=== PATIENT | male | born 1985 | race Caucasian/White ===

== ENCOUNTER 2017-11-28 01:35 | Inpatient (IN) | payer BC, OTHER ==
[~2017-11-28] VITALS: Ht 162.6 cm; Wt 63.0 kg
[2017-11-28] VITALS (7 sets, daily range): BP systolic 114–123; BP diastolic 69–74
[2017-11-28] MEDS ORDERED: DOLU50TA PO (03:01)
[2017-11-28] MEDS ORDERED: EMTR1TAB12 PO (03:01)
[2017-11-28] MEDS ORDERED: TRAZ-132 PO (03:04)
[2017-11-28] MEDS ORDERED: GUAIFENESIN 200MG/10ML SUGAR FREE UDC PO PRN (08:30)
[2017-11-28] MEDS ORDERED: IPRATROPIUM/ALBUTEROL 0.5-3(2.5)MG/3ML NEB INH PRN (08:30)
[2017-11-28] MEDS ORDERED: MAGNESIUM/ALUMINUM HYDROXIDE/SIMETHICONE 30ML UDC PO PRN (08:30)
[2017-11-28] MEDS ORDERED: ONDANSETRON HCL 4MG/2ML VIAL IV PRN (08:30)
[2017-11-28] MEDS ORDERED: DOCUSATE SODIUM 100MG CAPSULE PO PRN (08:30)
[2017-11-28] MEDS ORDERED: DIPHENHYDRAMINE 50MG/ML VIAL IV PRN (08:30)
[2017-11-28] MEDS ORDERED: CLONIDINE 0.1MG TABLET PO PRN (08:30)
[2017-11-28] MEDS ORDERED: NA PHOS,M-B/NA PHOS,DI-BA ENEMA 118ML PR PRN (09:00)
[2017-11-28] MEDS: ALPRAZOLAM 0.5 MG TABLET PO PRN (12:27)
[2017-11-28 12:49] LABS: BASOPHILS % 0.3 % (0.0-2.0); EOSINOPHILS % 0.2 % (0.0-5.0); HEMATOCRIT. 40.7 % (42.0-52.0); HEMOGLOBIN. 13.9 g/dL (14.0-18.0); LYMPHOCYTES % 23.7 % (20.0-50.0); MEAN CORPUSCULAR HEMOGLOBIN 31.9 pg (28.0-32.0); MEAN CORPUSCULAR VOLUME 93.6 fL (80.0-94.0); MEAN PLATELET VOLUME 8.1 fl (7.4-10.4); MONOCYTES % 12.2 % (2.0-8.0); NEUTROPHILS % 63.6 % (40.0-76.0); PLATELET 211 x1000/uL (130-400); RED BLOOD CELL COUNT 4.35 mill/uL (4.7-6.1); RED CELL DISTRIBUTION WIDTH 14.2 % (11.6-14.6)
[2017-11-28 13:33] LABS: CARBON DIOXIDE 27 mEq/L (21-32); CHLORIDE 102 mEq/L (98-107)
[2017-11-28] MEDS: SODIUM CHLORIDE 0.9% INJ 3ML FLUSH IVF SCH ×2 (14:26→20:43)
[2017-11-28 16:13] LABS: CLARITY URINE CLEAR (CLEAR); COLOR URINE YELLOW (YELLOW); KETONES URINE NEGATIVE (NEGATIVE); LEUKOCYTE ESTERASE URINE NEGATIVE (NEGATIVE); NITRITE URINE NEGATIVE (NEGATIVE); OCCULT BLOOD URINE NEGATIVE (NEGATIVE); PH URINE 6.5 (4.5-8.0); PROTEIN URINE NEGATIVE (NEGATIVE); SPECIFIC GRAVITY URINE 1.027 (1.005-1.030)
[2017-11-29] VITALS: BP 114/75
[2017-11-29] MEDS: HYDROCODONE/ACETAMINOPHEN 5/325MG TABLET PO PRN (01:33)
[2017-11-29 04:00] VITALS: BP 111/64
[2017-11-29] MEDS: SODIUM CHLORIDE 0.9% INJ 3ML FLUSH IVF SCH ×3 (06:00→22:00)
[2017-11-29 07:03] LABS: BASOPHILS % 0.4 % (0.0-2.0); EOSINOPHILS % 0.2 % (0.0-5.0); HEMATOCRIT. 40.5 % (42.0-52.0); HEMOGLOBIN. 14.2 g/dL (14.0-18.0); LYMPHOCYTES % 20.2 % (20.0-50.0); MEAN CORPUSCULAR HEMOGLOBIN 33.1 pg (28.0-32.0); MEAN CORPUSCULAR VOLUME 94.4 fL (80.0-94.0); MEAN PLATELET VOLUME 8.5 fl (7.4-10.4); MONOCYTES % 10.1 % (2.0-8.0); NEUTROPHILS % 69.1 % (40.0-76.0); PLATELET 191 x1000/uL (130-400); RED BLOOD CELL COUNT 4.29 mill/uL (4.7-6.1); RED CELL DISTRIBUTION WIDTH 14.5 % (11.6-14.6)
[2017-11-29 07:23] LABS: CHLORIDE 102 mEq/L (98-107)
[2017-11-29] MEDS ORDERED: [UNRECOGNIZED DRUG - OTHER] PO SCH (07:30)
[2017-11-29] MEDS ORDERED: MEDICATION NOT ON FORMULARY EA (Dolutegravir Sodium (Tivicay) 50 MG) PO SCH (07:30)
[2017-11-29 07:49] LABS: CARBON DIOXIDE 23 mEq/L (21-32); HDL CHOLESTEROL 41 mg/dL (40-59); LDL CHOLESTEROL 122 mg/dL (5-100)
[2017-11-29 08:00] VITALS: BP 110/66
[2017-11-29 12:00] VITALS: BP 117/70
[2017-11-29 16:00] VITALS: BP 113/70
[2017-11-29] MEDS: ALPRAZOLAM 0.5 MG TABLET PO PRN (17:33)
[2017-11-29 20:00] VITALS: BP 127/81
[2017-11-29] MEDS: TRAZODONE HCL 50MG TABLET PO SCH (21:21)
[2017-11-30] VITALS: BP 98/74
[2017-11-30] MEDS: SODIUM CHLORIDE 0.9% INJ 3ML FLUSH IVF SCH ×3 (06:00→22:00)
[2017-11-30 08:00] VITALS: BP 113/67
[2017-11-30 12:00] VITALS: BP 120/72
[2017-11-30] MEDS: ENOXAPARIN 40MG/0.4ML SYR SUBCUT SCH (14:58)
[2017-11-30] MEDS: HYDROCODONE/ACETAMINOPHEN 5/325MG TABLET PO PRN ×2 (15:06→21:44)
[2017-11-30 16:00] VITALS: BP 111/81
[2017-11-30] MEDS ORDERED: DOLU50TA PO ×2 (16:39→16:49)
[2017-11-30] MEDS ORDERED: EMTR1TAB12 PO ×2 (16:39→16:49)
[2017-11-30 19:32] VITALS: BP 107/63
[2017-11-30] MEDS: ALPRAZOLAM 0.5 MG TABLET PO PRN (21:44)
[2017-11-30] MEDS: GABAPENTIN 300MG CAPSULE PO SCH (21:44)
[2017-11-30] MEDS: TRAZODONE HCL 50MG TABLET PO SCH (21:45)
[2017-11-30 23:44] VITALS: BP 92/55
[2017-12-01 04:53] VITALS: BP 94/55
[2017-12-01] MEDS: SODIUM CHLORIDE 0.9% INJ 3ML FLUSH IVF SCH ×3 (06:00→22:00)
[2017-12-01 08:00] VITALS: BP 101/66
[2017-12-01] MEDS: ENOXAPARIN 40MG/0.4ML SYR SUBCUT SCH (08:59)
[2017-12-01 12:00] VITALS: BP 124/73
[2017-12-01 16:00] VITALS: BP 105/66
[2017-12-01 20:19] VITALS: BP 109/58
[2017-12-01] MEDS: GABAPENTIN 300MG CAPSULE PO SCH (21:36)
[2017-12-01] MEDS: TRAZODONE HCL 50MG TABLET PO SCH (21:36)
[2017-12-02 00:10] VITALS: BP 103/67
[2017-12-02 04:00] VITALS: BP 110/62
[2017-12-02] MEDS: SODIUM CHLORIDE 0.9% INJ 3ML FLUSH IVF SCH ×3 (06:00→22:00)
[2017-12-02 08:00] VITALS: BP 112/69
[2017-12-02] MEDS: ENOXAPARIN 40MG/0.4ML SYR SUBCUT SCH (08:53)
[2017-12-02 12:00] VITALS: BP 111/60
[2017-12-02 16:00] VITALS: BP 108/64
[2017-12-02] MEDS: TENOFOVIR 300MG TABLET PO SCH ×2 (16:00→16:25)
[2017-12-02] MEDS: LAMIVUDINE 150MG TABLET PO SCH ×2 (16:00→16:25)
[2017-12-02] MEDS: RALTEGRAVIR 400MG TABLET PO SCH (16:25)
[2017-12-02 20:00] VITALS: BP 112/69
[2017-12-02] MEDS: TRAZODONE HCL 50MG TABLET PO SCH (21:05)
[2017-12-02] MEDS: GABAPENTIN 300MG CAPSULE PO SCH (21:05)
[2017-12-02] MEDS: HYDROCODONE/ACETAMINOPHEN 5/325MG TABLET PO PRN (22:06)
[2017-12-03] VITALS: BP 103/63
[2017-12-03 04:00] VITALS: BP 115/62
[2017-12-03 08:00] VITALS: BP 100/56
[2017-12-03] MEDS: ENOXAPARIN 40MG/0.4ML SYR SUBCUT SCH (09:04)
[2017-12-03] MEDS: RALTEGRAVIR 400MG TABLET PO SCH ×2 (09:04→17:37)
[2017-12-03] MEDS: TENOFOVIR 300MG TABLET PO SCH (09:04)
[2017-12-03] MEDS: LAMIVUDINE 150MG TABLET PO SCH (09:04)
[2017-12-03] MEDS ORDERED: GABA-531 PO (11:57)
[2017-12-03] MEDS ORDERED: VIRE PO (11:57)
[2017-12-03] MEDS ORDERED: RALT400T PO (11:57)
[2017-12-03] MEDS ORDERED: ALPR0.5T PO (11:57)
[2017-12-03] MEDS ORDERED: EPIVIR PO (11:57)
[2017-12-03 12:00] VITALS: BP 126/66
[2017-12-03] MEDS: SODIUM CHLORIDE 0.9% INJ 3ML FLUSH IVF SCH (14:00)
[2017-12-03 16:00] VITALS: BP 117/69
[2017-12-03 20:00] VITALS: BP 103/64
[2017-12-03] MEDS: GABAPENTIN 300MG CAPSULE PO SCH (21:12)
[2017-12-03] MEDS: TRAZODONE HCL 50MG TABLET PO SCH (21:13)
[2017-12-04] VITALS: BP 130/76
[2017-12-04 04:00] VITALS: BP 113/69
[2017-12-04 06:42] LABS: HEMATOCRIT 39.3 % (42.0-52.0); HEMOGLOBIN 13.7 g/dL (14.0-18.0); MEAN CORPUSCULAR HEMOGLOBIN 33.2 pg (28.0-32.0); MEAN CORPUSCULAR VOLUME 95.7 fL (80.0-94.0); PLATELET 149 x1000/uL (130-400); RED BLOOD CELL COUNT 4.11 mill/uL (4.7-6.1); RED CELL DISTRIBUTION WIDTH 15.1 % (11.6-14.6)
[2017-12-04 08:00] VITALS: BP 117/64
[2017-12-04] MEDS: RALTEGRAVIR 400MG TABLET PO SCH ×2 (09:10→17:17)
[2017-12-04] MEDS: LAMIVUDINE 150MG TABLET PO SCH (09:10)
[2017-12-04] MEDS: ENOXAPARIN 40MG/0.4ML SYR SUBCUT SCH (09:10)
[2017-12-04] MEDS: TENOFOVIR 300MG TABLET PO SCH (09:10)
[2017-12-04 09:12] LABS: ABSOLUTE LYMPHOCYTES 1.2 x10E3/uL (0.7-3.1); ABSOLUTE MONOCYTES 0.5 x10E3/uL (0.1-0.9); ABSOLUTE NEUTROPHILS 3.6 x10E3/uL (1.4-7.0); BASOPHILS 0 % (Not Estab.); HEMATOCRIT 39.1 % (37.5-51.0); HEMOGLOBIN 13.3 g/dL (13.0-17.7); IMMATURE GRANULOCYTES 1 % (Not Estab.); LYMPHOCYTES 23 % (Not Estab.); MEAN CORPUSCULAR HEMOGLOBIN 32.2 pg (26.6-33.0); MEAN CORPUSCULAR VOLUME 95 fL (79-97); MONOCYTES 10 % (Not Estab.); NEUTROPHILS 66 % (Not Estab.); PLATELETS 157 x10E3/uL (150-379); RBC 4.13 x10E6/uL (4.14-5.80); RED CELL DISTRIBUTION WIDTH 15.7 % (12.3-15.4); WBC 5.4 x10E3/uL (3.4-10.8)
[2017-12-04 12:00] VITALS: BP 106/61
[2017-12-04 15:08] LABS: % CD 3 POS. LYMPHOCYTES 86.6 % (57.5-86.2); % CD 4 POS. LYMPHOCYTES 17.7 % (30.8-58.5); % CD 8 POS. LYMPH 67.1 % (12.0-35.5); ABSOLUTE CD 3 1039 /uL (622-2402); ABSOLUTE CD 4 HELPER 212 /uL (359-1519); ABSOLUTE CD 8 SUPPRESSOR 805 /uL (109-897); CD4/CD8 RATIO 0.26 (0.92-3.72)
[2017-12-04 16:00] VITALS: BP 110/62
[2017-12-04 20:00] VITALS: BP 107/67
[2017-12-04] MEDS: GABAPENTIN 100MG CAPSULE PO SCH (21:26)
[2017-12-04] MEDS: TRAZODONE HCL 50MG TABLET PO SCH (21:27)
[2017-12-04] MEDS: SODIUM CHLORIDE 0.9% INJ 3ML FLUSH IVF SCH (22:00)
[2017-12-05 00:19] VITALS: BP 111/70
[2017-12-05 04:00] VITALS: BP 100/66
[2017-12-05] MEDS: GABAPENTIN 100MG CAPSULE PO SCH ×3 (07:52→21:40)
[2017-12-05 08:00] VITALS: BP 95/68
[2017-12-05] MEDS: ENOXAPARIN 40MG/0.4ML SYR SUBCUT SCH (09:07)
[2017-12-05] MEDS: RALTEGRAVIR 400MG TABLET PO SCH ×2 (09:07→16:55)
[2017-12-05] MEDS: LAMIVUDINE 150MG TABLET PO SCH (09:07)
[2017-12-05] MEDS: TENOFOVIR 300MG TABLET PO SCH (09:07)
[2017-12-05 12:00] VITALS: BP 103/57
[2017-12-05] MEDS: SODIUM CHLORIDE 0.9% INJ 3ML FLUSH IVF SCH ×2 (14:00→22:00)
[2017-12-05 16:00] VITALS: BP 112/66
[2017-12-05 20:39] VITALS: BP 99/53
[2017-12-05] MEDS: TRAZODONE HCL 50MG TABLET PO SCH (21:40)
[2017-12-06 00:10] VITALS: BP 117/65
[2017-12-06 04:00] VITALS: BP 114/56
[2017-12-06] MEDS: GABAPENTIN 100MG CAPSULE PO SCH ×2 (05:49→15:04)
[2017-12-06] MEDS: SODIUM CHLORIDE 0.9% INJ 3ML FLUSH IVF SCH ×2 (06:00→14:00)
[2017-12-06 08:00] VITALS: BP 106/56
[2017-12-06] MEDS: RALTEGRAVIR 400MG TABLET PO SCH ×2 (08:54→17:10)
[2017-12-06] MEDS: TENOFOVIR 300MG TABLET PO SCH (08:54)
[2017-12-06] MEDS: LAMIVUDINE 150MG TABLET PO SCH (08:55)
[2017-12-06] MEDS: ENOXAPARIN 40MG/0.4ML SYR SUBCUT SCH (08:56)
[2017-12-06 12:00] VITALS: BP 110/68
[2017-12-06 16:00] VITALS: BP 113/58
== END 2017-12-06 17:20 | DRG 97 ==
LOC: 7WST 01:35
PROVIDERS: ADMIT Family Medicine; ATTEND Family Medicine
DX: G37.3 Acute transverse myelitis in demyelinating disease of central nervous system (principal); B20 Human immunodeficiency virus [HIV] disease; C81.90 Hodgkin lymphoma, unspecified, unspecified site; G82.20 Paraplegia, unspecified; G93.9 Disorder of brain, unspecified; R32 Unspecified urinary incontinence; Z91.19 Patient's noncompliance with other medical treatment and regimen
CPT/HCPCS: 36415; 80053; 80061; 81003; 85025; 85027; 86359; 86360; 87536; 97112; 97163; 97167; 97530; 97535; J1650; J7620

== ENCOUNTER 2017-12-06 17:25 | Inpatient (IN) | payer BC ==
[~2017-12-06] VITALS: Ht 162.6 cm; Wt 61.2 kg
[~2017-12-06 17:25] MED LIST: ALPR0.5T PO; EPIVIR PO; GABA-531 PO; RALT400T PO; TRAZ-132 PO; VIRE PO
[2017-12-06 17:40] VITALS: BP 113/68
[2017-12-06 18:30] VITALS: BP 113/68
[2017-12-06] MEDS ORDERED: DIPHENHYDRAMINE 50MG/ML VIAL IV PRN (19:00)
[2017-12-06] MEDS ORDERED: IPRATROPIUM/ALBUTEROL 0.5-3(2.5)MG/3ML NEB INH PRN (19:00)
[2017-12-06] MEDS ORDERED: ALPRAZOLAM 0.5 MG TABLET PO PRN (19:00)
[2017-12-06] MEDS ORDERED: CLONIDINE 0.1MG TABLET PO PRN (19:00)
[2017-12-06] MEDS ORDERED: ACETAMINOPHEN 650MG SUPP PR PRN (19:00)
[2017-12-06] MEDS ORDERED: ACETAMINOPHEN 650MG/20.3ML UDC GT PRN (19:00)
[2017-12-06] MEDS ORDERED: NA PHOS,M-B/NA PHOS,DI-BA ENEMA 118ML PR PRN (19:00)
[2017-12-06 20:00] VITALS: BP 107/62
[2017-12-06] MEDS: RALTEGRAVIR 400MG TABLET PO SCH (21:00)
[2017-12-06] MEDS: SODIUM CHLORIDE 0.9% INJ 3ML FLUSH IVF SCH (21:10)
[2017-12-06] MEDS: GABAPENTIN 300MG CAPSULE PO SCH (21:10)
[2017-12-06] MEDS: TRAZODONE HCL 50MG TABLET PO SCH (21:10)
[2017-12-07] MEDS: SODIUM CHLORIDE 0.9% INJ 3ML FLUSH IVF SCH ×2 (05:53→14:00)
[2017-12-07 08:00] VITALS: BP 104/63
[2017-12-07] MEDS: RALTEGRAVIR 400MG TABLET PO SCH ×2 (08:56→16:43)
[2017-12-07] MEDS: TENOFOVIR 300MG TABLET PO SCH (08:57)
[2017-12-07] MEDS: LAMIVUDINE 150MG TABLET PO SCH (08:57)
[2017-12-07] MEDS: ENOXAPARIN 40MG/0.4ML SYR SUBCUT SCH (08:58)
[2017-12-07] MEDS: HYDROCODONE/ACETAMINOPHEN 5/325MG TABLET PO PRN (15:23)
[2017-12-07] MEDS: DOCUSATE SODIUM 100MG CAPSULE PO SCH (16:42)
[2017-12-07] MEDS ORDERED: ALPRAZOLAM 0.5 MG TABLET PO PRN (19:00)
[2017-12-07 20:00] VITALS: BP 118/70
[2017-12-07] MEDS: GABAPENTIN 300MG CAPSULE PO SCH (21:22)
[2017-12-07] MEDS: TRAZODONE HCL 50MG TABLET PO SCH (21:23)
[2017-12-08 08:30] VITALS: BP 107/58
[2017-12-08] MEDS: DOCUSATE SODIUM 100MG CAPSULE PO SCH ×2 (08:42→17:33)
[2017-12-08] MEDS: ENOXAPARIN 40MG/0.4ML SYR SUBCUT SCH (08:44)
[2017-12-08] MEDS: RALTEGRAVIR 400MG TABLET PO SCH ×2 (08:44→17:33)
[2017-12-08] MEDS: LAMIVUDINE 150MG TABLET PO SCH (08:44)
[2017-12-08] MEDS: TENOFOVIR 300MG TABLET PO SCH (08:45)
[2017-12-08] MEDS: HYDROCODONE/ACETAMINOPHEN 5/325MG TABLET PO PRN ×2 (08:47→22:02)
[2017-12-08 20:00] VITALS: BP 103/64
[2017-12-08] MEDS: GABAPENTIN 300MG CAPSULE PO SCH (21:36)
[2017-12-08] MEDS: TRAZODONE HCL 50MG TABLET PO SCH (21:37)
[2017-12-08] MEDS: SODIUM CHLORIDE 0.9% INJ 3ML FLUSH IVF SCH (21:58)
[2017-12-09] MEDS: SODIUM CHLORIDE 0.9% INJ 3ML FLUSH IVF SCH (06:00)
[2017-12-09 08:00] VITALS: BP 103/53
[2017-12-09] MEDS: RALTEGRAVIR 400MG TABLET PO SCH ×2 (09:25→16:53)
[2017-12-09] MEDS: ENOXAPARIN 40MG/0.4ML SYR SUBCUT SCH (09:25)
[2017-12-09] MEDS: DOCUSATE SODIUM 100MG CAPSULE PO SCH ×2 (09:25→16:53)
[2017-12-09] MEDS: TENOFOVIR 300MG TABLET PO SCH (09:25)
[2017-12-09] MEDS: LAMIVUDINE 150MG TABLET PO SCH (09:26)
[2017-12-09 15:25] VITALS: BP 111/74
[2017-12-09] MEDS: HYDROCODONE/ACETAMINOPHEN 5/325MG TABLET PO PRN (15:33)
[2017-12-09 20:03] VITALS: BP 114/66
[2017-12-09 20:08] LABS: INR 1.1; PROTHROMBIN TIME 11.3 sec (9.4-11.6)
[2017-12-09] MEDS: TRAZODONE HCL 50MG TABLET PO SCH (20:48)
[2017-12-09] MEDS: GABAPENTIN 300MG CAPSULE PO SCH (20:48)
[2017-12-10 08:00] VITALS: BP 107/57
[2017-12-10 08:37] LABS: BASOPHILS % 0.3 % (0.0-2.0); EOSINOPHILS % 1.4 % (0.0-5.0); HEMATOCRIT 42.3 % (42.0-52.0); HEMATOCRIT. 42.3 % (42.0-52.0); HEMOGLOBIN 14.3 g/dL (14.0-18.0); HEMOGLOBIN. 14.3 g/dL (14.0-18.0); LYMPHOCYTES % 34.5 % (20.0-50.0); MEAN CORPUSCULAR HEMOGLOBIN 32.3 pg (28.0-32.0); MEAN CORPUSCULAR VOLUME 95.9 fL (80.0-94.0); MEAN PLATELET VOLUME 8.7 fl (7.4-10.4); MONOCYTES % 6.3 % (2.0-8.0); NEUTROPHILS % 57.5 % (40.0-76.0); PLATELET 160 x1000/uL (130-400); RED BLOOD CELL COUNT 4.41 mill/uL (4.7-6.1); RED CELL DISTRIBUTION WIDTH 15.2 % (11.6-14.6)
[2017-12-10] MEDS: DOCUSATE SODIUM 100MG CAPSULE PO SCH ×2 (09:21→16:25)
[2017-12-10] MEDS: ENOXAPARIN 40MG/0.4ML SYR SUBCUT SCH (09:21)
[2017-12-10] MEDS: RALTEGRAVIR 400MG TABLET PO SCH ×2 (09:22→16:26)
[2017-12-10] MEDS: TENOFOVIR 300MG TABLET PO SCH (09:22)
[2017-12-10] MEDS: LAMIVUDINE 150MG TABLET PO SCH (09:22)
[2017-12-10] MEDS: HYDROCODONE/ACETAMINOPHEN 5/325MG TABLET PO PRN ×2 (09:22→14:20)
[2017-12-10 10:07] LABS: CHLORIDE 105 mEq/L (98-107)
[2017-12-10 10:09] LABS: PHOSPHORUS 3.4 mg/dL (2.5-4.9)
[2017-12-10 20:00] VITALS: BP 104/60
[2017-12-10] MEDS: GABAPENTIN 300MG CAPSULE PO SCH (21:23)
[2017-12-10] MEDS: TRAZODONE HCL 50MG TABLET PO SCH (21:23)
[2017-12-11 08:00] VITALS: BP 94/62
[2017-12-11] MEDS: ENOXAPARIN 40MG/0.4ML SYR SUBCUT SCH (09:19)
[2017-12-11] MEDS: DOCUSATE SODIUM 100MG CAPSULE PO SCH ×2 (09:19→17:18)
[2017-12-11] MEDS: LAMIVUDINE 150MG TABLET PO SCH (09:20)
[2017-12-11] MEDS: RALTEGRAVIR 400MG TABLET PO SCH ×2 (09:20→17:19)
[2017-12-11] MEDS: TENOFOVIR 300MG TABLET PO SCH (09:20)
[2017-12-11] MEDS: HYDROCODONE/ACETAMINOPHEN 5/325MG TABLET PO PRN (12:11)
[2017-12-11] MEDS ORDERED: BISACODYL 10MG SUPP PR PRN (19:15)
[2017-12-11 20:00] VITALS: BP 100/58
[2017-12-11] MEDS: GABAPENTIN 300MG CAPSULE PO SCH (21:23)
[2017-12-11] MEDS: TRAZODONE HCL 50MG TABLET PO SCH (21:24)
[2017-12-12 08:00] VITALS: BP 92/60
[2017-12-12] MEDS: ENOXAPARIN 40MG/0.4ML SYR SUBCUT SCH (09:15)
[2017-12-12] MEDS: DOCUSATE SODIUM 100MG CAPSULE PO SCH ×2 (09:15→17:16)
[2017-12-12] MEDS: RALTEGRAVIR 400MG TABLET PO SCH ×2 (09:16→17:16)
[2017-12-12] MEDS: TENOFOVIR 300MG TABLET PO SCH (09:16)
[2017-12-12] MEDS: LAMIVUDINE 150MG TABLET PO SCH (09:16)
[2017-12-12] MEDS: ZINC SULFATE 220 MG ( 50 ) CAPSULE PO SCH (14:21)
[2017-12-12] MEDS: MULTIVITAMINS,THER W-MINERALS TABLET PO SCH (14:21)
[2017-12-12] MEDS: MAGNESIUM/ALUMINUM HYDROXIDE/SIMETHICONE 30ML UDC PO PRN (18:21)
[2017-12-12] MEDS: BISACODYL 10MG SUPP PR SCH (18:37)
[2017-12-12 20:00] VITALS: BP 102/65
[2017-12-12] MEDS: ACETAMINOPHEN 325MG TABLET PO PRN (20:18)
[2017-12-12] MEDS: GABAPENTIN 300MG CAPSULE PO SCH (20:23)
[2017-12-12] MEDS: TRAZODONE HCL 50MG TABLET PO SCH (20:23)
[2017-12-12] MEDS: ASCORBIC ACID 250 MG TABLET PO SCH (20:23)
[2017-12-12] MEDS ORDERED: TAMSULOSIN HCL 0.4MG SR CAPSULE PO ONE (20:30)
[2017-12-12] MEDS: TAMSULOSIN HCL 0.4MG SR CAPSULE PO SCH (23:40)
[2017-12-13 08:00] VITALS: BP 87/51
[2017-12-13] MEDS: MULTIVITAMINS,THER W-MINERALS TABLET PO SCH (09:02)
[2017-12-13] MEDS: ASCORBIC ACID 250 MG TABLET PO SCH ×2 (09:02→22:13)
[2017-12-13] MEDS: ZINC SULFATE 220 MG ( 50 ) CAPSULE PO SCH (09:02)
[2017-12-13] MEDS: RALTEGRAVIR 400MG TABLET PO SCH ×2 (09:02→16:19)
[2017-12-13] MEDS: TENOFOVIR 300MG TABLET PO SCH (09:02)
[2017-12-13] MEDS: DOCUSATE SODIUM 100MG CAPSULE PO SCH ×2 (09:02→16:19)
[2017-12-13] MEDS: LAMIVUDINE 150MG TABLET PO SCH (09:02)
[2017-12-13] MEDS: ENOXAPARIN 40MG/0.4ML SYR SUBCUT SCH (09:02)
[2017-12-13] MEDS: MAGNESIUM/ALUMINUM HYDROXIDE/SIMETHICONE 30ML UDC PO PRN (09:14)
[2017-12-13 11:05] VITALS: BP 114/70
[2017-12-13] MEDS: HYDROCODONE/ACETAMINOPHEN 5/325MG TABLET PO PRN ×2 (11:12→18:01)
[2017-12-13] MEDS: SIMETHICONE 80MG TABLET CHEW PO PRN ×2 (13:40→19:49)
[2017-12-13 16:07] LABS: BASOPHILS % 0.2 % (0.0-2.0); HEMATOCRIT. 42.2 % (42.0-52.0); HEMOGLOBIN. 14.8 g/dL (14.0-18.0); LYMPHOCYTES % 33.6 % (20.0-50.0); MEAN CORPUSCULAR HEMOGLOBIN 33.3 pg (28.0-32.0); MEAN CORPUSCULAR VOLUME 95.1 fL (80.0-94.0); MEAN PLATELET VOLUME 9.1 fl (7.4-10.4); MONOCYTES % 10.4 % (2.0-8.0); NEUTROPHILS % 54.8 % (40.0-76.0); PLATELET 196 x1000/uL (130-400); RED BLOOD CELL COUNT 4.43 mill/uL (4.7-6.1); RED CELL DISTRIBUTION WIDTH 15.1 % (11.6-14.6)
[2017-12-13 16:24] LABS: CHLORIDE 104 mEq/L (98-107)
[2017-12-13 17:50] VITALS: BP 111/66
[2017-12-13 18:33] LABS: CLARITY URINE TURBID (CLEAR); COLOR URINE DARK YELLOW (YELLOW); KETONES URINE TRACE (NEGATIVE); LEUKOCYTE ESTERASE URINE NEGATIVE (NEGATIVE); NITRITE URINE NEGATIVE (NEGATIVE); OCCULT BLOOD URINE NEGATIVE (NEGATIVE); PROTEIN URINE NEGATIVE (NEGATIVE); SPECIFIC GRAVITY URINE 1.026 (1.005-1.030)
[2017-12-13] MEDS: BISACODYL 10MG SUPP PR SCH (18:40)
[2017-12-13 20:00] VITALS: BP 112/68
[2017-12-13] MEDS ORDERED: LACTULOSE 20G/30ML UDC PO SCH (22:11)
[2017-12-13] MEDS: TRAZODONE HCL 50MG TABLET PO SCH (22:12)
[2017-12-13] MEDS: TAMSULOSIN HCL 0.4MG SR CAPSULE PO SCH (22:13)
[2017-12-13] MEDS: GABAPENTIN 300MG CAPSULE PO SCH (22:13)
[2017-12-13] MEDS ORDERED: MAGNESIUM CITRATE 300ML SOLUTION PO NR (23:45)
[2017-12-13] MEDS ORDERED: LACTULOSE 20G/30ML UDC PO PRN (23:45)
[2017-12-14] MEDS ORDERED: MAGNESIUM CITRATE 300ML SOLUTION PO SCH
[2017-12-14] MEDS ORDERED: MAGNESIUM CITRATE 300ML SOLUTION PO PRN (00:15)
[2017-12-14 08:39] VITALS: BP 102/59
[2017-12-14] MEDS: RALTEGRAVIR 400MG TABLET PO SCH ×2 (09:00→16:31)
[2017-12-14] MEDS: DOCUSATE SODIUM 100MG CAPSULE PO SCH ×2 (09:00→16:31)
[2017-12-14] MEDS: MULTIVITAMINS,THER W-MINERALS TABLET PO SCH (09:00)
[2017-12-14] MEDS: TENOFOVIR 300MG TABLET PO SCH (09:00)
[2017-12-14] MEDS: LAMIVUDINE 150MG TABLET PO SCH (09:00)
[2017-12-14] MEDS: ASCORBIC ACID 250 MG TABLET PO SCH ×2 (09:00→22:27)
[2017-12-14] MEDS: ZINC SULFATE 220 MG ( 50 ) CAPSULE PO SCH (09:00)
[2017-12-14] MEDS: HYDROCODONE/ACETAMINOPHEN 5/325MG TABLET PO PRN (10:16)
[2017-12-14] MEDS: ENOXAPARIN 40MG/0.4ML SYR SUBCUT SCH (11:37)
[2017-12-14] MEDS ORDERED: KETOROLAC 30MG/ML VIAL IV PRN (12:45)
[2017-12-14] MEDS: ONDANSETRON HCL 4MG/2ML VIAL IV PRN (12:45)
[2017-12-14] MEDS: LEVOFLOXACIN 500MG TABLET PO SCH (13:32)
[2017-12-14] MEDS ORDERED: KETOROLAC 30MG/ML VIAL IM NR (13:44)
[2017-12-14] MEDS: ONDANSETRON HCL 4MG TABLET PO PRN (14:24)
[2017-12-14] MEDS: BISACODYL 5MG TABLET PO SCH (14:30)
[2017-12-14] MEDS: ACETAMINOPHEN 325MG TABLET PO PRN (14:39)
[2017-12-14 15:16] LABS: BASOPHILS % 0.1 % (0.0-2.0); EOSINOPHILS % 0.2 % (0.0-5.0); HEMATOCRIT. 42.7 % (42.0-52.0); HEMOGLOBIN. 14.5 g/dL (14.0-18.0); LYMPHOCYTES % 9.5 % (20.0-50.0); MEAN CORPUSCULAR HEMOGLOBIN 32.4 pg (28.0-32.0); MEAN CORPUSCULAR VOLUME 95.2 fL (80.0-94.0); MEAN PLATELET VOLUME 8.7 fl (7.4-10.4); MONOCYTES % 6.7 % (2.0-8.0); NEUTROPHILS % 83.5 % (40.0-76.0); PLATELET 181 x1000/uL (130-400); RED BLOOD CELL COUNT 4.48 mill/uL (4.7-6.1); RED CELL DISTRIBUTION WIDTH 15.4 % (11.6-14.6)
[2017-12-14 15:29] LABS: CHLORIDE 104 mEq/L (98-107)
[2017-12-14 16:26] LABS: CLARITY URINE TURBID (CLEAR); COLOR URINE YELLOW (YELLOW); KETONES URINE 1+ (NEGATIVE); LEUKOCYTE ESTERASE URINE 3+ (NEGATIVE); NITRITE URINE NEGATIVE (NEGATIVE); OCCULT BLOOD URINE 3+ (NEGATIVE); PH URINE >=9.0 (4.5-8.0); PROTEIN URINE 3+ (NEGATIVE); SPECIFIC GRAVITY URINE 1.021 (1.005-1.030)
[2017-12-14] MEDS ORDERED: MORPHINE SULFATE 2 MG/ML CPJ (NOT FOR IM USE) IV PRN (17:30)
[2017-12-14] MEDS: MORPHINE SULFATE 4 MG/ML CPJ (NOT FOR IM USE) IV PRN ×2 (17:49→22:28)
[2017-12-14] MEDS ORDERED: PHENAZOPYRIDINE HCL 200MG TABLET PO NR (19:00)
[2017-12-14] MEDS: BISACODYL 10MG SUPP PR SCH (19:00)
[2017-12-14 20:12] VITALS: BP 135/72
[2017-12-14] MEDS: TRAZODONE HCL 50MG TABLET PO SCH (22:27)
[2017-12-14] MEDS: GABAPENTIN 300MG CAPSULE PO SCH (23:18)
[2017-12-14] MEDS: TAMSULOSIN HCL 0.4MG SR CAPSULE PO SCH (23:19)
[2017-12-15 08:00] VITALS: BP 102/66
[2017-12-15] MEDS: RALTEGRAVIR 400MG TABLET PO SCH ×2 (09:00→16:00)
[2017-12-15] MEDS: TENOFOVIR 300MG TABLET PO SCH (09:00)
[2017-12-15] MEDS: LAMIVUDINE 150MG TABLET PO SCH (09:00)
[2017-12-15] MEDS: DOCUSATE SODIUM 100MG CAPSULE PO SCH ×2 (09:53→16:34)
[2017-12-15] MEDS: BISACODYL 5MG TABLET PO SCH (09:53)
[2017-12-15] MEDS: ZINC SULFATE 220 MG ( 50 ) CAPSULE PO SCH (09:53)
[2017-12-15] MEDS: ASCORBIC ACID 250 MG TABLET PO SCH ×2 (09:53→21:16)
[2017-12-15] MEDS: MULTIVITAMINS,THER W-MINERALS TABLET PO SCH (09:53)
[2017-12-15] MEDS: ENOXAPARIN 40MG/0.4ML SYR SUBCUT SCH (09:54)
[2017-12-15] MEDS: MORPHINE SULFATE 4 MG/ML CPJ (NOT FOR IM USE) IV PRN ×2 (09:55→21:56)
[2017-12-15] MEDS: LEVOFLOXACIN 500MG TABLET PO SCH (11:55)
[2017-12-15] MEDS: DULOXETINE HCL 30MG DR CAPSULE PO SCH (16:34)
[2017-12-15] MEDS: BISACODYL 10MG SUPP PR SCH (19:00)
[2017-12-15 20:00] VITALS: BP 107/70
[2017-12-15] MEDS: TAMSULOSIN HCL 0.4MG SR CAPSULE PO SCH (21:16)
[2017-12-15] MEDS: TRAZODONE HCL 50MG TABLET PO SCH (21:16)
[2017-12-15] MEDS: GABAPENTIN 300MG CAPSULE PO SCH (21:17)
[2017-12-15] MEDS: SIMETHICONE 80MG TABLET CHEW PO PRN (21:49)
[2017-12-16 08:00] VITALS: BP 108/55
[2017-12-16] MEDS: LAMIVUDINE 150MG TABLET PO SCH (09:00)
[2017-12-16] MEDS: RALTEGRAVIR 400MG TABLET PO SCH ×2 (09:00→17:00)
[2017-12-16] MEDS: TENOFOVIR 300MG TABLET PO SCH (09:00)
[2017-12-16] MEDS: ENOXAPARIN 40MG/0.4ML SYR SUBCUT SCH (09:00)
[2017-12-16] MEDS: BISACODYL 5MG TABLET PO SCH (09:19)
[2017-12-16] MEDS: ZINC SULFATE 220 MG ( 50 ) CAPSULE PO SCH (09:19)
[2017-12-16] MEDS: DULOXETINE HCL 30MG DR CAPSULE PO SCH (09:19)
[2017-12-16] MEDS: DOCUSATE SODIUM 100MG CAPSULE PO SCH ×2 (09:19→17:58)
[2017-12-16] MEDS: ASCORBIC ACID 250 MG TABLET PO SCH ×2 (09:19→21:23)
[2017-12-16] MEDS: MULTIVITAMINS,THER W-MINERALS TABLET PO SCH (09:19)
[2017-12-16] MEDS: LEVOFLOXACIN 500MG TABLET PO SCH (11:20)
[2017-12-16] MEDS: ONDANSETRON HCL 4MG/2ML VIAL IV PRN (12:31)
[2017-12-16] MEDS: HYDROCODONE/ACETAMINOPHEN 5/325MG TABLET PO PRN ×2 (17:59→22:14)
[2017-12-16] MEDS: BISACODYL 10MG SUPP PR SCH (18:04)
[2017-12-16 20:00] VITALS: BP 111/71
[2017-12-16] MEDS: TAMSULOSIN HCL 0.4MG SR CAPSULE PO SCH (21:23)
[2017-12-16] MEDS: GABAPENTIN 300MG CAPSULE PO SCH (21:23)
[2017-12-16] MEDS: TRAZODONE HCL 50MG TABLET PO SCH (21:24)
[2017-12-17 08:00] VITALS: BP 104/59
[2017-12-17] MEDS: TENOFOVIR 300MG TABLET PO SCH (09:00)
[2017-12-17] MEDS: LAMIVUDINE 150MG TABLET PO SCH (09:00)
[2017-12-17] MEDS: RALTEGRAVIR 400MG TABLET PO SCH ×2 (09:00→17:00)
[2017-12-17] MEDS: ZINC SULFATE 220 MG ( 50 ) CAPSULE PO SCH (09:46)
[2017-12-17] MEDS: DULOXETINE HCL 30MG DR CAPSULE PO SCH (09:47)
[2017-12-17] MEDS: ASCORBIC ACID 250 MG TABLET PO SCH ×2 (09:47→21:19)
[2017-12-17] MEDS: MULTIVITAMINS,THER W-MINERALS TABLET PO SCH (09:47)
[2017-12-17] MEDS: DOCUSATE SODIUM 100MG CAPSULE PO SCH ×2 (09:48→17:16)
[2017-12-17] MEDS: ENOXAPARIN 40MG/0.4ML SYR SUBCUT SCH (09:48)
[2017-12-17] MEDS: LEVOFLOXACIN 500MG TABLET PO SCH (11:12)
[2017-12-17] MEDS: HYDROCODONE/ACETAMINOPHEN 5/325MG TABLET PO PRN (12:27)
[2017-12-17] MEDS: ONDANSETRON HCL 4MG/2ML VIAL IV PRN (14:49)
[2017-12-17] MEDS ORDERED: SORBITOL 70% SOLN 30ML PO NR (15:30)
[2017-12-17] MEDS: DICYCLOMINE HCL 20MG TABLET PO SCH ×2 (17:00→17:16)
[2017-12-17] MEDS: BISACODYL 10MG SUPP PR SCH (17:17)
[2017-12-17 20:00] VITALS: BP 107/66
[2017-12-17] MEDS: ONDANSETRON HCL 4MG TABLET PO PRN (21:19)
[2017-12-17] MEDS: TAMSULOSIN HCL 0.4MG SR CAPSULE PO SCH (21:19)
[2017-12-17] MEDS: TRAZODONE HCL 50MG TABLET PO SCH (21:19)
[2017-12-17] MEDS: GABAPENTIN 300MG CAPSULE PO SCH (21:19)
[2017-12-18 08:00] VITALS: BP 115/59
[2017-12-18] MEDS: ASCORBIC ACID 250 MG TABLET PO SCH ×2 (08:26→21:17)
[2017-12-18] MEDS: DICYCLOMINE HCL 20MG TABLET PO SCH ×3 (08:26→17:50)
[2017-12-18] MEDS: MULTIVITAMINS,THER W-MINERALS TABLET PO SCH (08:26)
[2017-12-18] MEDS: ENOXAPARIN 40MG/0.4ML SYR SUBCUT SCH (08:26)
[2017-12-18] MEDS: DOCUSATE SODIUM 100MG CAPSULE PO SCH ×2 (08:26→17:50)
[2017-12-18] MEDS: ZINC SULFATE 220 MG ( 50 ) CAPSULE PO SCH (08:26)
[2017-12-18] MEDS: DULOXETINE HCL 30MG DR CAPSULE PO SCH (08:26)
[2017-12-18] MEDS: TENOFOVIR 300MG TABLET PO SCH ×2 (08:27→08:38)
[2017-12-18] MEDS: RALTEGRAVIR 400MG TABLET PO SCH ×2 (08:27→08:38)
[2017-12-18] MEDS: LAMIVUDINE 150MG TABLET PO SCH ×2 (08:27→08:38)
[2017-12-18] MEDS: HYDROCODONE/ACETAMINOPHEN 5/325MG TABLET PO PRN (08:29)
[2017-12-18] MEDS ORDERED: ONDANSETRON 4MG ODT PO PRN (10:30)
[2017-12-18] MEDS ORDERED: NA PHOS,M-B/NA PHOS,DI-BA ENEMA 118ML PR NR (12:30)
[2017-12-18] MEDS ORDERED: PROCHLORPERAZINE 10MG/2ML VIAL IM PRN (12:30)
[2017-12-18] MEDS ORDERED: SORBITOL 70% SOLN 30ML PO NR (14:00)
[2017-12-18] MEDS: LEVOFLOXACIN 500MG TABLET PO SCH (14:29)
[2017-12-18] MEDS: DESCOVY 200MG/25MG TAB PO SCH (17:51)
[2017-12-18] MEDS: TIVICAY 50MG TAB PO SCH (17:51)
[2017-12-18] MEDS: BISACODYL 10MG SUPP PR SCH (17:53)
[2017-12-18 20:00] VITALS: BP 109/53
[2017-12-18] MEDS: TAMSULOSIN HCL 0.4MG SR CAPSULE PO SCH (21:16)
[2017-12-18] MEDS: GABAPENTIN 300MG CAPSULE PO SCH (21:16)
[2017-12-18] MEDS: TRAZODONE HCL 50MG TABLET PO SCH (21:17)
[2017-12-19] MEDS: HYDROCODONE/ACETAMINOPHEN 5/325MG TABLET PO PRN (07:45)
[2017-12-19 08:00] VITALS: BP 107/67
[2017-12-19] MEDS: ZINC SULFATE 220 MG ( 50 ) CAPSULE PO SCH (09:56)
[2017-12-19] MEDS: DICYCLOMINE HCL 20MG TABLET PO SCH ×2 (09:56→12:58)
[2017-12-19] MEDS: DULOXETINE HCL 30MG DR CAPSULE PO SCH (09:56)
[2017-12-19] MEDS: MULTIVITAMINS,THER W-MINERALS TABLET PO SCH (09:56)
[2017-12-19] MEDS: ENOXAPARIN 40MG/0.4ML SYR SUBCUT SCH (09:56)
[2017-12-19] MEDS: ASCORBIC ACID 250 MG TABLET PO SCH ×2 (09:56→21:27)
[2017-12-19] MEDS: DOCUSATE SODIUM 100MG CAPSULE PO SCH ×2 (09:57→18:06)
[2017-12-19] MEDS: TIVICAY 50MG TAB PO SCH (09:57)
[2017-12-19] MEDS: DESCOVY 200MG/25MG TAB PO SCH (09:57)
[2017-12-19 10:15] LABS: BASOPHILS % 0.4 % (0.0-2.0); EOSINOPHILS % 0.1 % (0.0-5.0); HEMATOCRIT. 43.7 % (42.0-52.0); HEMOGLOBIN. 15.1 g/dL (14.0-18.0); LYMPHOCYTES % 34.1 % (20.0-50.0); MEAN CORPUSCULAR VOLUME 95.4 fL (80.0-94.0); MEAN PLATELET VOLUME 9.2 fl (7.4-10.4); MONOCYTES % 7.4 % (2.0-8.0); PLATELET 203 x1000/uL (130-400); RED BLOOD CELL COUNT 4.58 mill/uL (4.7-6.1); RED CELL DISTRIBUTION WIDTH 15.1 % (11.6-14.6)
[2017-12-19 10:19] LABS: INR 1.2; PROTHROMBIN TIME 12.2 sec (9.4-11.6)
[2017-12-19 11:27] LABS: CHLORIDE 102 mEq/L (98-107)
[2017-12-19] MEDS: LEVOFLOXACIN 500MG TABLET PO SCH (12:58)
[2017-12-19] MEDS: BISACODYL 10MG SUPP PR SCH (18:07)
[2017-12-19 20:00] VITALS: BP 108/63
[2017-12-19] MEDS: TRAZODONE HCL 50MG TABLET PO SCH (21:27)
[2017-12-19] MEDS: GABAPENTIN 300MG CAPSULE PO SCH (21:27)
[2017-12-19] MEDS: TAMSULOSIN HCL 0.4MG SR CAPSULE PO SCH (21:33)
[2017-12-20 08:00] VITALS: BP 121/71
[2017-12-20] MEDS ORDERED: DOCUSATE SODIUM 100MG CAPSULE PO SCH (11:00)
[2017-12-20] MEDS: DULOXETINE HCL 30MG DR CAPSULE PO SCH (11:05)
[2017-12-20] MEDS: ASCORBIC ACID 250 MG TABLET PO SCH ×2 (11:06→20:32)
[2017-12-20] MEDS: MULTIVITAMINS,THER W-MINERALS TABLET PO SCH (11:06)
[2017-12-20] MEDS: ZINC SULFATE 220 MG ( 50 ) CAPSULE PO SCH (11:06)
[2017-12-20] MEDS: ENOXAPARIN 40MG/0.4ML SYR SUBCUT SCH (11:07)
[2017-12-20] MEDS: DESCOVY 200MG/25MG TAB PO SCH (11:08)
[2017-12-20] MEDS: TIVICAY 50MG TAB PO SCH (11:09)
[2017-12-20] MEDS: SODIUM CHLORIDE 0.9% 1,000 ML IV SCH ×2 (11:09→21:50)
[2017-12-20] MEDS: LEVOFLOXACIN 500MG TABLET PO SCH (11:11)
[2017-12-20] MEDS: PROCHLORPERAZINE 10MG/2ML VIAL IM PRN (12:05)
[2017-12-20] MEDS: BISACODYL 10MG SUPP PR SCH (19:00)
[2017-12-20 20:00] VITALS: BP 113/71
[2017-12-20] MEDS: GABAPENTIN 300MG CAPSULE PO SCH (20:32)
[2017-12-20] MEDS: TRAZODONE HCL 50MG TABLET PO SCH (20:32)
[2017-12-20] MEDS: TAMSULOSIN HCL 0.4MG SR CAPSULE PO SCH (20:33)
[2017-12-21 08:00] VITALS: BP 101/61
[2017-12-21] MEDS: ASCORBIC ACID 250 MG TABLET PO SCH ×2 (08:36→20:31)
[2017-12-21] MEDS: ENOXAPARIN 40MG/0.4ML SYR SUBCUT SCH (08:36)
[2017-12-21] MEDS: DULOXETINE HCL 30MG DR CAPSULE PO SCH (08:37)
[2017-12-21] MEDS: ZINC SULFATE 220 MG ( 50 ) CAPSULE PO SCH (08:37)
[2017-12-21] MEDS: MULTIVITAMINS,THER W-MINERALS TABLET PO SCH (08:37)
[2017-12-21] MEDS: DESCOVY 200MG/25MG TAB PO SCH (08:38)
[2017-12-21] MEDS: TIVICAY 50MG TAB PO SCH (08:39)
[2017-12-21] MEDS ORDERED: DOCUSATE SODIUM 100MG CAPSULE PO SCH (09:00)
[2017-12-21] MEDS ORDERED: DOCUSATE SODIUM 250MG CAPSULE PO SCH (09:32)
[2017-12-21] MEDS: SODIUM CHLORIDE 0.9% 1,000 ML IV SCH ×2 (11:10→20:33)
[2017-12-21] MEDS: LEVOFLOXACIN 500MG TABLET PO SCH (11:39)
[2017-12-21] MEDS: DOCUSATE SODIUM 250MG CAPSULE PO SCH (17:43)
[2017-12-21 20:00] VITALS: BP 112/73
[2017-12-21] MEDS: TRAZODONE HCL 50MG TABLET PO SCH (20:30)
[2017-12-21] MEDS: TAMSULOSIN HCL 0.4MG SR CAPSULE PO SCH (20:31)
[2017-12-21] MEDS: MAGNESIUM/ALUMINUM HYDROXIDE/SIMETHICONE 30ML UDC PO PRN (20:31)
[2017-12-21] MEDS: GABAPENTIN 300MG CAPSULE PO SCH (20:31)
[2017-12-21] MEDS: HYDROCODONE/ACETAMINOPHEN 5/325MG TABLET PO PRN (20:32)
[2017-12-22] MEDS: SODIUM CHLORIDE 0.9% 1,000 ML IV SCH ×2 (00:12→13:50)
[2017-12-22 08:00] VITALS: BP 107/60
[2017-12-22] MEDS: ZINC SULFATE 220 MG ( 50 ) CAPSULE PO SCH (09:00)
[2017-12-22] MEDS: ENOXAPARIN 40MG/0.4ML SYR SUBCUT SCH (09:00)
[2017-12-22] MEDS: ASCORBIC ACID 250 MG TABLET PO SCH ×2 (09:00→20:53)
[2017-12-22] MEDS: MULTIVITAMINS,THER W-MINERALS TABLET PO SCH (09:00)
[2017-12-22] MEDS: DULOXETINE HCL 30MG DR CAPSULE PO SCH (12:45)
[2017-12-22] MEDS: DOCUSATE SODIUM 250MG CAPSULE PO SCH ×2 (12:45→16:19)
[2017-12-22] MEDS: DESCOVY 200MG/25MG TAB PO SCH (12:46)
[2017-12-22] MEDS: TIVICAY 50MG TAB PO SCH (12:46)
[2017-12-22] MEDS: HYDROCODONE/ACETAMINOPHEN 5/325MG TABLET PO PRN (16:19)
[2017-12-22] MEDS: MAGNESIUM/ALUMINUM HYDROXIDE/SIMETHICONE 30ML UDC PO PRN (16:23)
[2017-12-22] MEDS: ONDANSETRON 4MG ODT PO PRN (17:26)
[2017-12-22 20:00] VITALS: BP 119/69
[2017-12-22] MEDS: TRAZODONE HCL 50MG TABLET PO SCH (20:45)
[2017-12-22] MEDS: GABAPENTIN 300MG CAPSULE PO SCH (20:45)
[2017-12-22] MEDS: TAMSULOSIN HCL 0.4MG SR CAPSULE PO SCH (20:53)
[2017-12-23] MEDS: ONDANSETRON 4MG ODT PO PRN ×2 (02:23→16:01)
[2017-12-23] MEDS: SODIUM CHLORIDE 0.9% 1,000 ML IV SCH ×2 (02:23→15:41)
[2017-12-23] MEDS: HYDROCODONE/ACETAMINOPHEN 5/325MG TABLET PO PRN ×2 (02:24→16:18)
[2017-12-23] MEDS: BISACODYL 10MG SUPP PR PRN (06:12)
[2017-12-23 08:00] VITALS: BP 104/60
[2017-12-23] MEDS: MULTIVITAMINS,THER W-MINERALS TABLET PO SCH (09:00)
[2017-12-23] MEDS: ASCORBIC ACID 250 MG TABLET PO SCH ×2 (09:00→21:00)
[2017-12-23] MEDS: ZINC SULFATE 220 MG ( 50 ) CAPSULE PO SCH (09:00)
[2017-12-23] MEDS: DOCUSATE SODIUM 250MG CAPSULE PO SCH ×2 (14:35→16:19)
[2017-12-23] MEDS: ENOXAPARIN 40MG/0.4ML SYR SUBCUT SCH (14:35)
[2017-12-23] MEDS: DULOXETINE HCL 30MG DR CAPSULE PO SCH (14:35)
[2017-12-23] MEDS: DESCOVY 200MG/25MG TAB PO SCH (14:36)
[2017-12-23] MEDS: TIVICAY 50MG TAB PO SCH (14:36)
[2017-12-23] MEDS: MORPHINE SULFATE 2 MG/ML CPJ (NOT FOR IM USE) IV PRN (17:59)
[2017-12-23 19:43] VITALS: BP 128/77
[2017-12-23] MEDS: TAMSULOSIN HCL 0.4MG SR CAPSULE PO SCH (22:47)
[2017-12-23] MEDS: GABAPENTIN 300MG CAPSULE PO SCH (22:47)
[2017-12-23] MEDS: TRAZODONE HCL 50MG TABLET PO SCH (22:47)
[2017-12-24] MEDS: SODIUM CHLORIDE 0.9% 1,000 ML IV SCH ×2 (06:32→19:10)
[2017-12-24 08:34] VITALS: BP 114/58
[2017-12-24] MEDS: MULTIVITAMINS,THER W-MINERALS TABLET PO SCH (09:00)
[2017-12-24] MEDS: ZINC SULFATE 220 MG ( 50 ) CAPSULE PO SCH (09:00)
[2017-12-24] MEDS: ASCORBIC ACID 250 MG TABLET PO SCH ×2 (09:00→21:16)
[2017-12-24] MEDS: DESCOVY 200MG/25MG TAB PO SCH (10:30)
[2017-12-24] MEDS: TIVICAY 50MG TAB PO SCH (10:30)
[2017-12-24] MEDS: ENOXAPARIN 40MG/0.4ML SYR SUBCUT SCH (10:31)
[2017-12-24] MEDS: DULOXETINE HCL 30MG DR CAPSULE PO SCH (10:32)
[2017-12-24] MEDS: DOCUSATE SODIUM 250MG CAPSULE PO SCH ×2 (10:32→17:00)
[2017-12-24] MEDS: ONDANSETRON HCL 4MG/2ML VIAL IV PRN (11:42)
[2017-12-24] MEDS: MORPHINE SULFATE 2 MG/ML CPJ (NOT FOR IM USE) IV PRN (13:55)
[2017-12-24 16:41] LABS: BASOPHILS % 0.2 % (0.0-2.0); EOSINOPHILS % 0.1 % (0.0-5.0); HEMATOCRIT. 41.1 % (42.0-52.0); HEMOGLOBIN. 14.3 g/dL (14.0-18.0); LYMPHOCYTES % 16.2 % (20.0-50.0); MEAN CORPUSCULAR HEMOGLOBIN 33.1 pg (28.0-32.0); MEAN CORPUSCULAR VOLUME 95.3 fL (80.0-94.0); MEAN PLATELET VOLUME 9.5 fl (7.4-10.4); MONOCYTES % 8.2 % (2.0-8.0); NEUTROPHILS % 75.3 % (40.0-76.0); PLATELET 147 x1000/uL (130-400); RED BLOOD CELL COUNT 4.31 mill/uL (4.7-6.1); RED CELL DISTRIBUTION WIDTH 14.5 % (11.6-14.6)
[2017-12-24 17:11] LABS: CHLORIDE 100 mEq/L (98-107); TROPONIN I < 0.02 ng/mL (0.00-0.04)
[2017-12-24 19:04] LABS: CLARITY URINE TURBID (CLEAR); COLOR URINE DARK YELLOW (YELLOW); KETONES URINE 4+ (NEGATIVE); LEUKOCYTE ESTERASE URINE 3+ (NEGATIVE); NITRITE URINE POSITIVE (NEGATIVE); OCCULT BLOOD URINE 3+ (NEGATIVE); PROTEIN URINE 2+ (NEGATIVE)
[2017-12-24 20:00] VITALS: BP 101/53
[2017-12-24] MEDS: TAMSULOSIN HCL 0.4MG SR CAPSULE PO SCH (21:00)
[2017-12-24] MEDS: TRAZODONE HCL 50MG TABLET PO SCH (21:16)
[2017-12-24] MEDS: GABAPENTIN 300MG CAPSULE PO SCH (21:16)
[2017-12-25 08:00] VITALS: BP 104/62
[2017-12-25] MEDS: ASCORBIC ACID 250 MG TABLET PO SCH ×2 (09:14→20:33)
[2017-12-25] MEDS: MULTIVITAMINS,THER W-MINERALS TABLET PO SCH (09:14)
[2017-12-25] MEDS: TIVICAY 50MG TAB PO SCH (09:14)
[2017-12-25] MEDS: ENOXAPARIN 40MG/0.4ML SYR SUBCUT SCH (09:14)
[2017-12-25] MEDS: DOCUSATE SODIUM 250MG CAPSULE PO SCH ×2 (09:14→16:19)
[2017-12-25] MEDS: ZINC SULFATE 220 MG ( 50 ) CAPSULE PO SCH (09:14)
[2017-12-25] MEDS: DESCOVY 200MG/25MG TAB PO SCH (09:14)
[2017-12-25] MEDS: SODIUM CHLORIDE 0.9% 1,000 ML IV SCH ×2 (09:14→21:50)
[2017-12-25] MEDS: DULOXETINE HCL 30MG DR CAPSULE PO SCH (09:14)
[2017-12-25] MEDS ORDERED: LORAZEPAM 1MG TABLET PO PRN (16:15)
[2017-12-25] MEDS ORDERED: GADOBENATE DIMEGLUMINE 529 MG/ML 10ML IV ONE (17:15)
[2017-12-25 20:00] VITALS: BP 117/76
[2017-12-25] MEDS: GABAPENTIN 300MG CAPSULE PO SCH (20:29)
[2017-12-25] MEDS: HYDROCODONE/ACETAMINOPHEN 5/325MG TABLET PO PRN (20:31)
[2017-12-25] MEDS: TAMSULOSIN HCL 0.4MG SR CAPSULE PO SCH (20:32)
[2017-12-25] MEDS: TRAZODONE HCL 50MG TABLET PO SCH (20:32)
[2017-12-25] MEDS: SULFAMETHOXAZOLE/TRIMETHOPRIM 800/160MG TABLET PO SCH (20:35)
[2017-12-26] MEDS: HYDROCODONE/ACETAMINOPHEN 5/325MG TABLET PO PRN ×2 (07:01→12:47)
[2017-12-26] MEDS: PROCHLORPERAZINE 10MG/2ML VIAL IM PRN (07:53)
[2017-12-26 08:30] VITALS: BP 138/73
[2017-12-26] MEDS: ASCORBIC ACID 250 MG TABLET PO SCH ×2 (09:00→21:30)
[2017-12-26] MEDS: ZINC SULFATE 220 MG ( 50 ) CAPSULE PO SCH (09:00)
[2017-12-26] MEDS: MULTIVITAMINS,THER W-MINERALS TABLET PO SCH (09:00)
[2017-12-26] MEDS: ENOXAPARIN 40MG/0.4ML SYR SUBCUT SCH (09:00)
[2017-12-26] MEDS: ACETAMINOPHEN 325MG TABLET PO PRN (10:59)
[2017-12-26] MEDS: SODIUM CHLORIDE 0.9% 1,000 ML IV SCH ×2 (12:31→23:19)
[2017-12-26] MEDS: DOCUSATE SODIUM 250MG CAPSULE PO SCH ×2 (12:46→17:00)
[2017-12-26] MEDS: DULOXETINE HCL 30MG DR CAPSULE PO SCH (12:46)
[2017-12-26] MEDS: SULFAMETHOXAZOLE/TRIMETHOPRIM 800/160MG TABLET PO SCH ×2 (12:47→21:00)
[2017-12-26] MEDS: TIVICAY 50MG TAB PO SCH (12:48)
[2017-12-26] MEDS: DESCOVY 200MG/25MG TAB PO SCH (12:49)
[2017-12-26] MEDS: ONDANSETRON 4MG ODT PO PRN (15:02)
[2017-12-26 20:00] VITALS: BP 111/65
[2017-12-26] MEDS: ARIPIPRAZOLE 5MG TABLET PO SCH (20:45)
[2017-12-26] MEDS ORDERED: CEFEPIME HCL 1000MG/VIAL INJ IM SCH (21:00)
[2017-12-26] MEDS ORDERED: LIDOCAINE HCL 1% 10 MG/ML 10ML VIAL INJ SCH (21:00)
[2017-12-26] MEDS: GABAPENTIN 300MG CAPSULE PO SCH (21:30)
[2017-12-26] MEDS: TRAZODONE HCL 50MG TABLET PO SCH (21:30)
[2017-12-26] MEDS: TAMSULOSIN HCL 0.4MG SR CAPSULE PO SCH (21:31)
[2017-12-27] MEDS ORDERED: MEROPENEM 500 MG in SODIUM CHLORIDE 0.9% 50 ML IV SCH (02:00)
[2017-12-27 08:00] VITALS: BP 103/59
[2017-12-27] MEDS ORDERED: LIDOCAINE HCL 1% 20ML VIAL (Pyxis) INJ ONE (08:52)
[2017-12-27] MEDS: DOCUSATE SODIUM 250MG CAPSULE PO SCH ×2 (09:00→17:30)
[2017-12-27] MEDS: MEROPENEM 500 MG in SODIUM CHLORIDE 0.9% 50 ML IV SCH ×2 (10:06→17:26)
[2017-12-27] MEDS: ENOXAPARIN 40MG/0.4ML SYR SUBCUT SCH (10:07)
[2017-12-27] MEDS: DULOXETINE HCL 30MG DR CAPSULE PO SCH (10:08)
[2017-12-27] MEDS: ASCORBIC ACID 250 MG TABLET PO SCH ×2 (10:08→20:05)
[2017-12-27] MEDS: MULTIVITAMINS,THER W-MINERALS TABLET PO SCH (10:08)
[2017-12-27] MEDS: SULFAMETHOXAZOLE/TRIMETHOPRIM 800/160MG TABLET PO SCH (10:08)
[2017-12-27] MEDS: DESCOVY 200MG/25MG TAB PO SCH (10:09)
[2017-12-27] MEDS: ARIPIPRAZOLE 5MG TABLET PO SCH (10:09)
[2017-12-27] MEDS: ZINC SULFATE 220 MG ( 50 ) CAPSULE PO SCH (10:09)
[2017-12-27] MEDS: TIVICAY 50MG TAB PO SCH (10:10)
[2017-12-27] MEDS: ONDANSETRON HCL 4MG/2ML VIAL IV PRN (11:20)
[2017-12-27] MEDS: PROCHLORPERAZINE 10MG/2ML VIAL IM PRN ×2 (12:05→17:40)
[2017-12-27] MEDS: MORPHINE SULFATE 2 MG/ML CPJ (NOT FOR IM USE) IV PRN ×2 (12:47→20:18)
[2017-12-27] MEDS: SODIUM CHLORIDE 0.9% 1,000 ML IV SCH (17:28)
[2017-12-27 20:00] VITALS: BP 107/63
[2017-12-27] MEDS: TRAZODONE HCL 50MG TABLET PO SCH (20:04)
[2017-12-27] MEDS: TAMSULOSIN HCL 0.4MG SR CAPSULE PO SCH (20:05)
[2017-12-27] MEDS: GABAPENTIN 300MG CAPSULE PO SCH (20:05)
[2017-12-28] MEDS: MEROPENEM 500 MG in SODIUM CHLORIDE 0.9% 50 ML IV SCH ×3 (01:11→17:23)
[2017-12-28] MEDS: SODIUM CHLORIDE 0.9% 1,000 ML IV SCH ×2 (06:21→17:22)
[2017-12-28 08:00] VITALS: BP 91/48
[2017-12-28] MEDS: MULTIVITAMINS,THER W-MINERALS TABLET PO SCH (09:00)
[2017-12-28] MEDS: ARIPIPRAZOLE 5MG TABLET PO SCH (09:00)
[2017-12-28] MEDS: ENOXAPARIN 40MG/0.4ML SYR SUBCUT SCH (09:00)
[2017-12-28] MEDS: DULOXETINE HCL 30MG DR CAPSULE PO SCH (09:00)
[2017-12-28] MEDS: DOCUSATE SODIUM 250MG CAPSULE PO SCH (09:00)
[2017-12-28] MEDS: ZINC SULFATE 220 MG ( 50 ) CAPSULE PO SCH (09:00)
[2017-12-28] MEDS: DESCOVY 200MG/25MG TAB PO SCH (09:00)
[2017-12-28] MEDS: ASCORBIC ACID 250 MG TABLET PO SCH ×2 (09:00→20:51)
[2017-12-28] MEDS: TIVICAY 50MG TAB PO SCH (09:00)
[2017-12-28] MEDS: MORPHINE SULFATE 2 MG/ML CPJ (NOT FOR IM USE) IV PRN ×2 (09:03→17:25)
[2017-12-28] MEDS: HYDROCODONE/ACETAMINOPHEN 5/325MG TABLET PO PRN (14:12)
[2017-12-28] MEDS: LORAZEPAM 1MG TABLET PO PRN (19:57)
[2017-12-28 20:00] VITALS: BP 142/79
[2017-12-28] MEDS: TRAZODONE HCL 50MG TABLET PO SCH (20:51)
[2017-12-28] MEDS: TAMSULOSIN HCL 0.4MG SR CAPSULE PO SCH (20:51)
[2017-12-28] MEDS: GABAPENTIN 300MG CAPSULE PO SCH (20:51)
[2017-12-29] MEDS: SODIUM CHLORIDE 0.9% 1,000 ML IV SCH ×3 (01:22→17:54)
[2017-12-29] MEDS: MEROPENEM 500 MG in SODIUM CHLORIDE 0.9% 50 ML IV SCH ×3 (01:22→17:54)
[2017-12-29 08:00] VITALS: BP 89/46
[2017-12-29 09:35] VITALS: BP 96/53
[2017-12-29] MEDS: MULTIVITAMINS,THER W-MINERALS TABLET PO SCH (09:55)
[2017-12-29] MEDS: TIVICAY 50MG TAB PO SCH (09:55)
[2017-12-29] MEDS: ARIPIPRAZOLE 5MG TABLET PO SCH (09:55)
[2017-12-29] MEDS: DULOXETINE HCL 30MG DR CAPSULE PO SCH (09:55)
[2017-12-29] MEDS: ASCORBIC ACID 250 MG TABLET PO SCH ×2 (09:55→20:33)
[2017-12-29] MEDS: DESCOVY 200MG/25MG TAB PO SCH (09:55)
[2017-12-29] MEDS: ZINC SULFATE 220 MG ( 50 ) CAPSULE PO SCH (09:55)
[2017-12-29] MEDS: ENOXAPARIN 40MG/0.4ML SYR SUBCUT SCH (09:56)
[2017-12-29] MEDS: LORAZEPAM 1MG TABLET PO PRN (10:01)
[2017-12-29] MEDS: ONDANSETRON 4MG ODT PO PRN (10:27)
[2017-12-29] MEDS: MORPHINE SULFATE 2 MG/ML CPJ (NOT FOR IM USE) IV PRN (19:56)
[2017-12-29 20:00] VITALS: BP 113/69
[2017-12-29] MEDS: TRAZODONE HCL 50MG TABLET PO SCH (20:32)
[2017-12-29] MEDS: GABAPENTIN 300MG CAPSULE PO SCH (20:32)
[2017-12-29] MEDS: TAMSULOSIN HCL 0.4MG SR CAPSULE PO SCH (20:33)
[2017-12-30] MEDS: MEROPENEM 500 MG in SODIUM CHLORIDE 0.9% 50 ML IV SCH ×3 (01:09→17:56)
[2017-12-30 08:00] VITALS: BP 95/59
[2017-12-30] MEDS: ZINC SULFATE 220 MG ( 50 ) CAPSULE PO SCH (09:00)
[2017-12-30] MEDS: ASCORBIC ACID 250 MG TABLET PO SCH ×2 (09:00→21:09)
[2017-12-30] MEDS: ENOXAPARIN 40MG/0.4ML SYR SUBCUT SCH (09:00)
[2017-12-30] MEDS: MULTIVITAMINS,THER W-MINERALS TABLET PO SCH (09:00)
[2017-12-30] MEDS: MORPHINE SULFATE 2 MG/ML CPJ (NOT FOR IM USE) IV PRN ×2 (10:07→21:15)
[2017-12-30] MEDS: ARIPIPRAZOLE 5MG TABLET PO SCH (10:15)
[2017-12-30] MEDS: TIVICAY 50MG TAB PO SCH (10:16)
[2017-12-30] MEDS: DESCOVY 200MG/25MG TAB PO SCH (10:17)
[2017-12-30] MEDS: DULOXETINE HCL 30MG DR CAPSULE PO SCH (10:18)
[2017-12-30] MEDS: SODIUM CHLORIDE 0.9% 1,000 ML IV SCH ×2 (10:33→21:09)
[2017-12-30] MEDS ORDERED: HYDROMORPHONE HCL/PF 2MG/ML CPJ IV NR (13:39)
[2017-12-30] MEDS: ONDANSETRON 4MG ODT PO PRN (13:54)
[2017-12-30] MEDS: LORAZEPAM 1MG TABLET PO PRN (16:53)
[2017-12-30 20:00] VITALS: BP 105/63
[2017-12-30] MEDS: TRAZODONE HCL 50MG TABLET PO SCH (21:08)
[2017-12-30] MEDS: GABAPENTIN 300MG CAPSULE PO SCH (21:08)
[2017-12-30] MEDS: TAMSULOSIN HCL 0.4MG SR CAPSULE PO SCH (21:09)
[2017-12-31] MEDS: MEROPENEM 500 MG in SODIUM CHLORIDE 0.9% 50 ML IV SCH ×3 (01:04→18:25)
[2017-12-31] MEDS: ONDANSETRON 4MG ODT PO PRN ×2 (06:26→19:18)
[2017-12-31] MEDS: BISACODYL 10MG SUPP PR PRN (06:26)
[2017-12-31] MEDS: MORPHINE SULFATE 2 MG/ML CPJ (NOT FOR IM USE) IV PRN ×3 (06:38→18:24)
[2017-12-31 08:00] VITALS: BP 105/63
[2017-12-31] MEDS: HYDROCODONE/ACETAMINOPHEN 5/325MG TABLET PO PRN (08:26)
[2017-12-31] MEDS: ASCORBIC ACID 250 MG TABLET PO SCH ×2 (09:00→21:00)
[2017-12-31] MEDS: ZINC SULFATE 220 MG ( 50 ) CAPSULE PO SCH (09:00)
[2017-12-31] MEDS: MULTIVITAMINS,THER W-MINERALS TABLET PO SCH (09:00)
[2017-12-31] MEDS: ARIPIPRAZOLE 5MG TABLET PO SCH (09:22)
[2017-12-31] MEDS: DULOXETINE HCL 30MG DR CAPSULE PO SCH (09:22)
[2017-12-31] MEDS: ENOXAPARIN 40MG/0.4ML SYR SUBCUT SCH (09:22)
[2017-12-31] MEDS: TIVICAY 50MG TAB PO SCH (09:23)
[2017-12-31] MEDS: DESCOVY 200MG/25MG TAB PO SCH (09:23)
[2017-12-31] MEDS: SODIUM CHLORIDE 0.9% 1,000 ML IV SCH (10:31)
[2017-12-31] MEDS: DOCUSATE SODIUM 250MG CAPSULE PO SCH (18:25)
[2017-12-31 20:00] VITALS: BP 124/63
[2017-12-31] MEDS: GABAPENTIN 300MG CAPSULE PO SCH (21:00)
[2017-12-31] MEDS: TRAZODONE HCL 50MG TABLET PO SCH (21:00)
[2017-12-31] MEDS: TAMSULOSIN HCL 0.4MG SR CAPSULE PO SCH (21:00)
[2018-01-01] MEDS: MEROPENEM 500 MG in SODIUM CHLORIDE 0.9% 50 ML IV SCH ×3 (01:18→17:40)
[2018-01-01] MEDS: SODIUM CHLORIDE 0.9% 1,000 ML IV SCH ×2 (01:18→12:56)
[2018-01-01] MEDS: MORPHINE SULFATE 2 MG/ML CPJ (NOT FOR IM USE) IV PRN ×3 (01:21→17:40)
[2018-01-01 08:13] VITALS: BP 106/64
[2018-01-01] MEDS: ONDANSETRON 4MG ODT PO PRN ×2 (08:24→14:15)
[2018-01-01] MEDS: ASCORBIC ACID 250 MG TABLET PO SCH ×2 (09:00→21:00)
[2018-01-01] MEDS: MULTIVITAMINS,THER W-MINERALS TABLET PO SCH (09:00)
[2018-01-01] MEDS: ENOXAPARIN 40MG/0.4ML SYR SUBCUT SCH (09:00)
[2018-01-01] MEDS: ZINC SULFATE 220 MG ( 50 ) CAPSULE PO SCH (09:00)
[2018-01-01] MEDS: LORAZEPAM 1MG TABLET PO PRN (10:01)
[2018-01-01] MEDS: DULOXETINE HCL 30MG DR CAPSULE PO SCH (11:19)
[2018-01-01] MEDS: DOCUSATE SODIUM 250MG CAPSULE PO SCH (11:19)
[2018-01-01] MEDS: ARIPIPRAZOLE 5MG TABLET PO SCH (11:19)
[2018-01-01] MEDS: DESCOVY 200MG/25MG TAB PO SCH (11:20)
[2018-01-01] MEDS: TIVICAY 50MG TAB PO SCH (11:20)
[2018-01-01] MEDS: PROCHLORPERAZINE 10MG/2ML VIAL IM PRN (14:38)
[2018-01-01 20:00] VITALS: BP 105/69
[2018-01-01] MEDS: TAMSULOSIN HCL 0.4MG SR CAPSULE PO SCH (21:00)
[2018-01-01] MEDS: TRAZODONE HCL 50MG TABLET PO SCH (21:00)
[2018-01-01] MEDS: GABAPENTIN 300MG CAPSULE PO SCH (21:00)
[2018-01-02] MEDS: MEROPENEM 500 MG in SODIUM CHLORIDE 0.9% 50 ML IV SCH (03:10)
[2018-01-02] MEDS: SODIUM CHLORIDE 0.9% 1,000 ML IV SCH (03:20)
[2018-01-02 03:55] VITALS: BP 106/68
[2018-01-02 04:12] LABS: INFLUENZA B AB CF 1:16 (Neg:<1:8)
[2018-01-02] MEDS: ONDANSETRON 4MG ODT PO PRN ×2 (06:23→23:57)
[2018-01-02] MEDS: MORPHINE SULFATE 2 MG/ML CPJ (NOT FOR IM USE) IV PRN ×2 (06:32→14:54)
[2018-01-02] MEDS: ZINC SULFATE 220 MG ( 50 ) CAPSULE PO SCH (08:35)
[2018-01-02] MEDS: MULTIVITAMINS,THER W-MINERALS TABLET PO SCH (08:35)
[2018-01-02] MEDS: ASCORBIC ACID 250 MG TABLET PO SCH (08:35)
[2018-01-02] MEDS: ENOXAPARIN 40MG/0.4ML SYR SUBCUT SCH (08:35)
[2018-01-02] MEDS: LORAZEPAM 1MG TABLET PO PRN (08:49)
[2018-01-02] MEDS: DESCOVY 200MG/25MG TAB PO SCH (09:00)
[2018-01-02] MEDS: TIVICAY 50MG TAB PO SCH (09:00)
[2018-01-02] MEDS: DOCUSATE SODIUM 250MG CAPSULE PO SCH (09:00)
[2018-01-02] MEDS: DULOXETINE HCL 30MG DR CAPSULE PO SCH (11:42)
[2018-01-02] MEDS: ARIPIPRAZOLE 5MG TABLET PO SCH (11:43)
[2018-01-02] MEDS ORDERED: SORBITOL 70% SOLN 30ML PO NR (17:45)
[2018-01-02 20:00] VITALS: BP 114/75
[2018-01-02] MEDS: TRAZODONE HCL 50MG TABLET PO SCH (21:00)
[2018-01-02] MEDS: PREGABALIN 25MG CAPSULE PO SCH (21:00)
[2018-01-02] MEDS: TAMSULOSIN HCL 0.4MG SR CAPSULE PO SCH (21:00)
[2018-01-02] MEDS: OXYCODONE HCL 10MG TABLET SR 12HR PO SCH (21:00)
[2018-01-03] MEDS: MORPHINE SULFATE 2 MG/ML CPJ (NOT FOR IM USE) IV PRN ×2 (00:06→10:02)
[2018-01-03 08:00] VITALS: BP 118/71
[2018-01-03] MEDS: PREGABALIN 25MG CAPSULE PO SCH ×2 (08:20→21:00)
[2018-01-03] MEDS: DOCUSATE SODIUM 250MG CAPSULE PO SCH (08:20)
[2018-01-03] MEDS: ARIPIPRAZOLE 5MG TABLET PO SCH (08:21)
[2018-01-03] MEDS: DULOXETINE HCL 30MG DR CAPSULE PO SCH (08:21)
[2018-01-03] MEDS: OXYCODONE HCL 10MG TABLET SR 12HR PO SCH ×2 (08:22→21:39)
[2018-01-03] MEDS: DESCOVY 200MG/25MG TAB PO SCH (08:23)
[2018-01-03] MEDS: TIVICAY 50MG TAB PO SCH (08:23)
[2018-01-03] MEDS: ENOXAPARIN 40MG/0.4ML SYR SUBCUT SCH (09:00)
[2018-01-03] MEDS ORDERED: MAGNESIUM/ALUMINUM HYDROXIDE/SIMETHICONE 30ML UDC PO PRN (15:45)
[2018-01-03] MEDS ORDERED: NA PHOS,M-B/NA PHOS,DI-BA ENEMA 118ML PR PRN (15:45)
[2018-01-03] MEDS ORDERED: IPRATROPIUM/ALBUTEROL 0.5-3(2.5)MG/3ML NEB INH PRN (17:00)
[2018-01-03] MEDS ORDERED: CLONIDINE 0.1MG TABLET PO PRN (19:00)
[2018-01-03] MEDS ORDERED: ACETAMINOPHEN 325MG TABLET PO PRN (19:00)
[2018-01-03] MEDS ORDERED: ONDANSETRON HCL 4MG/2ML VIAL IV PRN (19:00)
[2018-01-03 20:00] VITALS: BP 109/66
[2018-01-03] MEDS: TAMSULOSIN HCL 0.4MG SR CAPSULE PO SCH (21:00)
[2018-01-03] MEDS: TRAZODONE HCL 50MG TABLET PO SCH (21:00)
[2018-01-03] MEDS: BISACODYL 10MG SUPP PR PRN (21:39)
[2018-01-04] MEDS: OXYCODONE HCL 10MG TABLET SR 12HR PO SCH ×2 (07:33→21:18)
[2018-01-04 08:00] VITALS: BP 102/60
[2018-01-04] MEDS: DOCUSATE SODIUM 250MG CAPSULE PO SCH (09:00)
[2018-01-04] MEDS: ONDANSETRON 4MG ODT PO PRN (09:19)
[2018-01-04] MEDS: DULOXETINE HCL 30MG DR CAPSULE PO SCH (09:20)
[2018-01-04] MEDS: DESCOVY 200MG/25MG TAB PO SCH (09:21)
[2018-01-04] MEDS: TIVICAY 50MG TAB PO SCH (09:21)
[2018-01-04] MEDS: ENOXAPARIN 40MG/0.4ML SYR SUBCUT SCH (09:21)
[2018-01-04] MEDS: ARIPIPRAZOLE 5MG TABLET PO SCH (09:21)
[2018-01-04] MEDS: PREGABALIN 25MG CAPSULE PO SCH ×2 (09:21→21:00)
[2018-01-04 13:02] LABS: BASOPHILS % 0.5 % (0.0-2.0); EOSINOPHILS % 1.2 % (0.0-5.0); HEMATOCRIT. 37.6 % (42.0-52.0); HEMOGLOBIN. 13.1 g/dL (14.0-18.0); LYMPHOCYTES % 25.1 % (20.0-50.0); MEAN CORPUSCULAR HEMOGLOBIN 32.5 pg (28.0-32.0); MEAN CORPUSCULAR VOLUME 93.1 fL (80.0-94.0); MEAN PLATELET VOLUME 8.5 fl (7.4-10.4); MONOCYTES % 6.5 % (2.0-8.0); NEUTROPHILS % 66.7 % (40.0-76.0); PLATELET 234 x1000/uL (130-400); RED BLOOD CELL COUNT 4.03 mill/uL (4.7-6.1); RED CELL DISTRIBUTION WIDTH 14.2 % (11.6-14.6)
[2018-01-04] MEDS: MORPHINE SULFATE 2 MG/ML CPJ (NOT FOR IM USE) IV PRN (13:53)
[2018-01-04 20:00] VITALS: BP 100/71
[2018-01-04] MEDS: TRAZODONE HCL 50MG TABLET PO SCH (21:00)
[2018-01-04] MEDS: TAMSULOSIN HCL 0.4MG SR CAPSULE PO SCH (21:00)
[2018-01-05 08:00] VITALS: BP 107/63
[2018-01-05] MEDS: ONDANSETRON 4MG ODT PO PRN (08:37)
[2018-01-05] MEDS: MORPHINE SULFATE 2 MG/ML CPJ (NOT FOR IM USE) IV PRN ×2 (08:38→17:00)
[2018-01-05] MEDS: DESCOVY 200MG/25MG TAB PO SCH (09:00)
[2018-01-05] MEDS: DOCUSATE SODIUM 250MG CAPSULE PO SCH (09:00)
[2018-01-05] MEDS: ARIPIPRAZOLE 5MG TABLET PO SCH (09:00)
[2018-01-05] MEDS: TIVICAY 50MG TAB PO SCH (09:00)
[2018-01-05] MEDS: ENOXAPARIN 40MG/0.4ML SYR SUBCUT SCH (09:00)
[2018-01-05] MEDS: PREGABALIN 25MG CAPSULE PO SCH ×2 (09:00→21:00)
[2018-01-05] MEDS: DULOXETINE HCL 30MG DR CAPSULE PO SCH (09:00)
[2018-01-05] MEDS: OXYCODONE HCL 10MG TABLET SR 12HR PO SCH ×2 (15:06→23:46)
[2018-01-05 20:00] VITALS: BP 102/64
[2018-01-05] MEDS: TAMSULOSIN HCL 0.4MG SR CAPSULE PO SCH (21:00)
[2018-01-05] MEDS: TRAZODONE HCL 50MG TABLET PO SCH (21:00)
[2018-01-06 08:00] VITALS: BP 104/63
[2018-01-06] MEDS: ENOXAPARIN 40MG/0.4ML SYR SUBCUT SCH (09:00)
[2018-01-06] MEDS: DOCUSATE SODIUM 250MG CAPSULE PO SCH (09:00)
[2018-01-06] MEDS: MORPHINE SULFATE 4 MG/ML CPJ (NOT FOR IM USE) IV PRN ×2 (10:27→16:21)
[2018-01-06] MEDS: TIVICAY 50MG TAB PO SCH (14:24)
[2018-01-06] MEDS: ARIPIPRAZOLE 5MG TABLET PO SCH (14:25)
[2018-01-06] MEDS: DESCOVY 200MG/25MG TAB PO SCH (14:25)
[2018-01-06] MEDS: DULOXETINE HCL 30MG DR CAPSULE PO SCH (14:26)
[2018-01-06] MEDS: PREGABALIN 25MG CAPSULE PO SCH ×2 (14:27→21:39)
[2018-01-06] MEDS: OXYCODONE HCL 10MG TABLET SR 12HR PO SCH ×2 (14:28→21:43)
[2018-01-06] MEDS: ONDANSETRON 4MG ODT PO PRN (16:06)
[2018-01-06 20:00] VITALS: BP 114/71
[2018-01-06] MEDS: TAMSULOSIN HCL 0.4MG SR CAPSULE PO SCH (21:00)
[2018-01-06] MEDS: TRAZODONE HCL 50MG TABLET PO SCH (21:00)
[2018-01-06] MEDS: NITROFURANTOIN 100MG M/M CAPSULE PO SCH (21:39)
[2018-01-07 08:00] VITALS: BP 100/61
[2018-01-07] MEDS: OXYCODONE HCL 10MG TABLET SR 12HR PO SCH ×2 (09:00→21:00)
[2018-01-07] MEDS: ENOXAPARIN 40MG/0.4ML SYR SUBCUT SCH (09:00)
[2018-01-07] MEDS ORDERED: SULFAMETHOXAZOLE/TRIMETHOPRIM 400/80MG TAB PO SCH (09:00)
[2018-01-07] MEDS: DULOXETINE HCL 30MG DR CAPSULE PO SCH (09:28)
[2018-01-07] MEDS: DOCUSATE SODIUM 250MG CAPSULE PO SCH (09:28)
[2018-01-07] MEDS: MORPHINE SULFATE 4 MG/ML CPJ (NOT FOR IM USE) IV PRN ×2 (09:28→21:05)
[2018-01-07] MEDS: NITROFURANTOIN 100MG M/M CAPSULE PO SCH ×2 (09:29→21:00)
[2018-01-07] MEDS: ARIPIPRAZOLE 5MG TABLET PO SCH (09:29)
[2018-01-07] MEDS: PREGABALIN 25MG CAPSULE PO SCH ×2 (09:29→21:00)
[2018-01-07] MEDS: DESCOVY 200MG/25MG TAB PO SCH (09:30)
[2018-01-07] MEDS: TIVICAY 50MG TAB PO SCH (09:31)
[2018-01-07] MEDS: ONDANSETRON 4MG ODT PO PRN (11:46)
[2018-01-07 20:00] VITALS: BP 104/64
[2018-01-07] MEDS: TRAZODONE HCL 50MG TABLET PO SCH (21:00)
[2018-01-07] MEDS: TAMSULOSIN HCL 0.4MG SR CAPSULE PO SCH (21:00)
[2018-01-08] MEDS: MORPHINE SULFATE 4 MG/ML CPJ (NOT FOR IM USE) IV PRN ×2 (06:32→14:18)
[2018-01-08 08:00] VITALS: BP 96/68
[2018-01-08] MEDS: DOCUSATE SODIUM 250MG CAPSULE PO SCH (08:58)
[2018-01-08] MEDS: PREGABALIN 25MG CAPSULE PO SCH ×2 (08:58→21:40)
[2018-01-08] MEDS: DULOXETINE HCL 30MG DR CAPSULE PO SCH (08:58)
[2018-01-08] MEDS: NITROFURANTOIN 100MG M/M CAPSULE PO SCH ×2 (08:58→21:40)
[2018-01-08] MEDS: ARIPIPRAZOLE 5MG TABLET PO SCH (08:58)
[2018-01-08] MEDS: BISACODYL 5MG TABLET PO PRN (08:58)
[2018-01-08] MEDS: TIVICAY 50MG TAB PO SCH (08:59)
[2018-01-08] MEDS: ENOXAPARIN 40MG/0.4ML SYR SUBCUT SCH (08:59)
[2018-01-08] MEDS: DESCOVY 200MG/25MG TAB PO SCH (08:59)
[2018-01-08] MEDS: OXYCODONE HCL 5MG TABLET PO PRN ×2 (09:58→21:44)
[2018-01-08] MEDS: ONDANSETRON 4MG ODT PO PRN (15:27)
[2018-01-08 20:00] VITALS: BP 111/64
[2018-01-08] MEDS: TRAZODONE HCL 50MG TABLET PO SCH (21:40)
[2018-01-08] MEDS: TAMSULOSIN HCL 0.4MG SR CAPSULE PO SCH (21:40)
[2018-01-09 08:00] VITALS: BP 107/61
[2018-01-09] MEDS: NITROFURANTOIN 100MG M/M CAPSULE PO SCH ×2 (08:24→21:02)
[2018-01-09] MEDS: DOCUSATE SODIUM 250MG CAPSULE PO SCH (08:24)
[2018-01-09] MEDS: ARIPIPRAZOLE 5MG TABLET PO SCH (08:24)
[2018-01-09] MEDS: DULOXETINE HCL 30MG DR CAPSULE PO SCH (08:24)
[2018-01-09] MEDS: TIVICAY 50MG TAB PO SCH (08:25)
[2018-01-09] MEDS: PREGABALIN 25MG CAPSULE PO SCH ×2 (08:25→21:02)
[2018-01-09] MEDS: DESCOVY 200MG/25MG TAB PO SCH (08:25)
[2018-01-09] MEDS: MORPHINE SULFATE 4 MG/ML CPJ (NOT FOR IM USE) IV PRN ×2 (08:26→21:17)
[2018-01-09] MEDS: ENOXAPARIN 40MG/0.4ML SYR SUBCUT SCH (08:37)
[2018-01-09] MEDS: ONDANSETRON 4MG ODT PO PRN (09:18)
[2018-01-09] MEDS: PROCHLORPERAZINE 10MG/2ML VIAL IM PRN (10:25)
[2018-01-09] MEDS: BISACODYL 10MG SUPP PR PRN (10:29)
[2018-01-09 20:55] VITALS: BP 107/59
[2018-01-09] MEDS: TAMSULOSIN HCL 0.4MG SR CAPSULE PO SCH (21:00)
[2018-01-09] MEDS: TRAZODONE HCL 50MG TABLET PO SCH (21:02)
[2018-01-10] MEDS: MORPHINE SULFATE 4 MG/ML CPJ (NOT FOR IM USE) IV PRN ×2 (06:16→23:22)
[2018-01-10 08:00] VITALS: BP 105/58
[2018-01-10] MEDS: ENOXAPARIN 40MG/0.4ML SYR SUBCUT SCH (09:00)
[2018-01-10] MEDS: NITROFURANTOIN 100MG M/M CAPSULE PO SCH ×2 (09:24→22:32)
[2018-01-10] MEDS: DOCUSATE SODIUM 250MG CAPSULE PO SCH (09:25)
[2018-01-10] MEDS: ARIPIPRAZOLE 5MG TABLET PO SCH (09:25)
[2018-01-10] MEDS: DULOXETINE HCL 30MG DR CAPSULE PO SCH (09:25)
[2018-01-10] MEDS: PREGABALIN 25MG CAPSULE PO SCH ×2 (09:26→22:32)
[2018-01-10] MEDS: TIVICAY 50MG TAB PO SCH (09:26)
[2018-01-10] MEDS: DESCOVY 200MG/25MG TAB PO SCH (09:27)
[2018-01-10] MEDS: OXYCODONE HCL 5MG TABLET PO PRN (09:38)
[2018-01-10] MEDS ORDERED: SIMETHICONE 80MG TABLET CHEW PO PRN (13:30)
[2018-01-10] MEDS: ONDANSETRON 4MG ODT PO PRN (14:52)
[2018-01-10] MEDS: BISACODYL 10MG SUPP PR PRN (17:15)
[2018-01-10 20:00] VITALS: BP 106/73
[2018-01-10] MEDS: TRAZODONE HCL 50MG TABLET PO SCH (22:32)
[2018-01-11 08:00] VITALS: BP 117/64
[2018-01-11] MEDS: ONDANSETRON 4MG ODT PO PRN (08:32)
[2018-01-11] MEDS: DOCUSATE SODIUM 250MG CAPSULE PO SCH (08:33)
[2018-01-11] MEDS: DULOXETINE HCL 30MG DR CAPSULE PO SCH (08:33)
[2018-01-11] MEDS: PREGABALIN 25MG CAPSULE PO SCH ×2 (08:33→20:46)
[2018-01-11] MEDS: ARIPIPRAZOLE 5MG TABLET PO SCH (08:33)
[2018-01-11] MEDS: TIVICAY 50MG TAB PO SCH (08:34)
[2018-01-11] MEDS: ENOXAPARIN 40MG/0.4ML SYR SUBCUT SCH (08:34)
[2018-01-11] MEDS: NITROFURANTOIN 100MG M/M CAPSULE PO SCH ×2 (08:34→20:46)
[2018-01-11] MEDS: DESCOVY 200MG/25MG TAB PO SCH (08:35)
[2018-01-11] MEDS: MORPHINE SULFATE 4 MG/ML CPJ (NOT FOR IM USE) IV PRN ×2 (08:37→14:32)
[2018-01-11] MEDS: BISACODYL 10MG SUPP PR PRN (08:42)
[2018-01-11] MEDS: PROCHLORPERAZINE 10MG/2ML VIAL IM PRN (14:06)
[2018-01-11 20:00] VITALS: BP 110/67
[2018-01-11] MEDS: TRAZODONE HCL 50MG TABLET PO SCH (20:46)
[2018-01-11] MEDS: OXYCODONE HCL 5MG TABLET PO PRN (20:56)
[2018-01-12 08:00] VITALS: BP 107/62
[2018-01-12] MEDS: MORPHINE SULFATE 4 MG/ML CPJ (NOT FOR IM USE) IV PRN ×2 (09:59→16:11)
[2018-01-12] MEDS: DULOXETINE HCL 30MG DR CAPSULE PO SCH (10:05)
[2018-01-12] MEDS: NITROFURANTOIN 100MG M/M CAPSULE PO SCH ×2 (10:05→20:40)
[2018-01-12] MEDS: ARIPIPRAZOLE 5MG TABLET PO SCH (10:05)
[2018-01-12] MEDS: DOCUSATE SODIUM 250MG CAPSULE PO SCH (10:06)
[2018-01-12] MEDS: PREGABALIN 25MG CAPSULE PO SCH (10:06)
[2018-01-12] MEDS: TIVICAY 50MG TAB PO SCH (10:07)
[2018-01-12] MEDS: ONDANSETRON 4MG ODT PO PRN (10:07)
[2018-01-12] MEDS: DESCOVY 200MG/25MG TAB PO SCH (10:08)
[2018-01-12] MEDS: ENOXAPARIN 40MG/0.4ML SYR SUBCUT SCH (10:09)
[2018-01-12] MEDS: BISACODYL 10MG SUPP PR PRN (18:09)
[2018-01-12 20:00] VITALS: BP 105/63
[2018-01-12] MEDS: TRAZODONE HCL 50MG TABLET PO SCH (20:40)
[2018-01-12] MEDS: PREGABALIN 50 MG CAPSULE PO SCH (20:40)
[2018-01-13 08:00] VITALS: BP 115/69
[2018-01-13] MEDS: NITROFURANTOIN 100MG M/M CAPSULE PO SCH ×2 (09:03→20:51)
[2018-01-13] MEDS: ENOXAPARIN 40MG/0.4ML SYR SUBCUT SCH (09:03)
[2018-01-13] MEDS: DULOXETINE HCL 30MG DR CAPSULE PO SCH (09:04)
[2018-01-13] MEDS: PREGABALIN 50 MG CAPSULE PO SCH ×2 (09:04→20:51)
[2018-01-13] MEDS: ONDANSETRON 4MG ODT PO PRN (09:04)
[2018-01-13] MEDS: ARIPIPRAZOLE 5MG TABLET PO SCH (09:04)
[2018-01-13] MEDS: DOCUSATE SODIUM 250MG CAPSULE PO SCH (09:04)
[2018-01-13] MEDS: MORPHINE SULFATE 4 MG/ML CPJ (NOT FOR IM USE) IV PRN (09:04)
[2018-01-13] MEDS: DESCOVY 200MG/25MG TAB PO SCH (09:05)
[2018-01-13] MEDS: TIVICAY 50MG TAB PO SCH (09:05)
[2018-01-13] MEDS: PROCHLORPERAZINE 10MG/2ML VIAL IM PRN (12:44)
[2018-01-13 20:00] VITALS: BP 103/60
[2018-01-13] MEDS: TRAZODONE HCL 50MG TABLET PO SCH (20:50)
[2018-01-13] MEDS: OXYCODONE HCL 5MG TABLET PO PRN (20:57)
[2018-01-14] MEDS: MORPHINE SULFATE 4 MG/ML CPJ (NOT FOR IM USE) IV PRN ×2 (08:14→22:22)
[2018-01-14 08:35] VITALS: BP 123/70
[2018-01-14] MEDS: DULOXETINE HCL 30MG DR CAPSULE PO SCH (13:18)
[2018-01-14] MEDS: PREGABALIN 50 MG CAPSULE PO SCH ×2 (13:19→21:21)
[2018-01-14] MEDS: ARIPIPRAZOLE 5MG TABLET PO SCH (13:19)
[2018-01-14] MEDS: DOCUSATE SODIUM 250MG CAPSULE PO SCH (13:19)
[2018-01-14] MEDS: TIVICAY 50MG TAB PO SCH (13:20)
[2018-01-14] MEDS: DESCOVY 200MG/25MG TAB PO SCH (13:20)
[2018-01-14] MEDS: ENOXAPARIN 40MG/0.4ML SYR SUBCUT SCH (13:20)
[2018-01-14] MEDS: OXYCODONE HCL 5MG TABLET PO PRN (13:38)
[2018-01-14 20:00] VITALS: BP 110/67
[2018-01-14] MEDS: TRAZODONE HCL 50MG TABLET PO SCH (21:31)
[2018-01-15] MEDS ORDERED: ONDANSETRON 4MG ODT PO PRN (00:21)
[2018-01-15] MEDS ORDERED: PROCHLORPERAZINE 10MG/2ML VIAL IM PRN (03:45)
[2018-01-15 08:00] VITALS: BP 110/68
[2018-01-15] MEDS: DULOXETINE HCL 30MG DR CAPSULE PO SCH (08:55)
[2018-01-15] MEDS: PREGABALIN 50 MG CAPSULE PO SCH ×2 (08:55→21:31)
[2018-01-15] MEDS: ARIPIPRAZOLE 5MG TABLET PO SCH (08:55)
[2018-01-15] MEDS: DOCUSATE SODIUM 250MG CAPSULE PO SCH (08:55)
[2018-01-15] MEDS: ENOXAPARIN 40MG/0.4ML SYR SUBCUT SCH (08:56)
[2018-01-15] MEDS: TIVICAY 50MG TAB PO SCH (08:57)
[2018-01-15] MEDS: DESCOVY 200MG/25MG TAB PO SCH (08:58)
[2018-01-15] MEDS ORDERED: NON FORMULARY PATIENT HOME MED EA PO SCH ×2 (09:00)
[2018-01-15] MEDS: MORPHINE SULFATE 4 MG/ML CPJ (NOT FOR IM USE) IV PRN (09:16)
[2018-01-15 20:00] VITALS: BP 99/58
[2018-01-15] MEDS: TRAZODONE HCL 50MG TABLET PO SCH (21:31)
[2018-01-16 08:00] VITALS: BP 102/68
[2018-01-16] MEDS: ENOXAPARIN 40MG/0.4ML SYR SUBCUT SCH (09:22)
[2018-01-16] MEDS: DOCUSATE SODIUM 250MG CAPSULE PO SCH (09:22)
[2018-01-16] MEDS: ARIPIPRAZOLE 5MG TABLET PO SCH (09:22)
[2018-01-16] MEDS: DULOXETINE HCL 30MG DR CAPSULE PO SCH (09:22)
[2018-01-16] MEDS: PREGABALIN 50 MG CAPSULE PO SCH ×2 (09:22→21:54)
[2018-01-16] MEDS: DESCOVY 200MG/25MG TAB PO SCH (09:23)
[2018-01-16] MEDS: MORPHINE SULFATE 4 MG/ML CPJ (NOT FOR IM USE) IV PRN ×2 (09:23→21:56)
[2018-01-16] MEDS: TIVICAY 50MG TAB PO SCH (09:24)
[2018-01-16 20:00] VITALS: BP 113/64
[2018-01-16] MEDS: BISACODYL 10MG SUPP PR PRN (20:29)
[2018-01-16] MEDS: TRAZODONE HCL 50MG TABLET PO SCH (21:54)
[2018-01-17 08:00] VITALS: BP 101/58
[2018-01-17] MEDS: ENOXAPARIN 40MG/0.4ML SYR SUBCUT SCH (09:00)
[2018-01-17] MEDS: ARIPIPRAZOLE 5MG TABLET PO SCH (09:06)
[2018-01-17] MEDS: DULOXETINE HCL 30MG DR CAPSULE PO SCH (09:06)
[2018-01-17] MEDS: DOCUSATE SODIUM 250MG CAPSULE PO SCH (09:06)
[2018-01-17] MEDS: BISACODYL 10MG SUPP PR PRN (09:06)
[2018-01-17] MEDS: BISACODYL 5MG TABLET PO PRN (09:07)
[2018-01-17] MEDS: PREGABALIN 50 MG CAPSULE PO SCH (09:07)
[2018-01-17] MEDS: DESCOVY 200MG/25MG TAB PO SCH (09:12)
[2018-01-17] MEDS: TIVICAY 50MG TAB PO SCH (09:12)
[2018-01-17 16:42] VITALS: BP 101/58
[2018-01-17] MEDS ORDERED: OXYCODONE HCL 10MG TABLET SR 12HR PO NR (18:59)
[2018-01-17 19:23] VITALS: BP 116/65
== END 2018-01-17 19:30 | disposition home or self-care (01) | DRG 97 ==
PROVIDERS: ADMIT Psychiatry & Neurology Neurology; ATTEND Family Medicine
PROC: 02HV33Z Insertion of Infusion Device into Superior Vena Cava, Percutaneous Approach (ICD-10-PCS; principal; 2017-12-27)
PROC: B5181ZA Fluoroscopy of Superior Vena Cava using Low Osmolar Contrast, Guidance (ICD-10-PCS; 2017-12-27)
PROC: B548ZZA Ultrasonography of Superior Vena Cava, Guidance (ICD-10-PCS; 2017-12-27)
DX: G37.3 Acute transverse myelitis in demyelinating disease of central nervous system (principal); B20 Human immunodeficiency virus [HIV] disease; C85.90 Non-Hodgkin lymphoma, unspecified, unspecified site; G82.20 Paraplegia, unspecified; I47.1 Supraventricular tachycardia; G95.9 Disease of spinal cord, unspecified; N30.00 Acute cystitis without hematuria; K59.2 Neurogenic bowel, not elsewhere classified; I10 Essential (primary) hypertension; N20.0 Calculus of kidney; F41.9 Anxiety disorder, unspecified; F32.9 Major depressive disorder, single episode, unspecified; R15.9 Full incontinence of feces; G62.9 Polyneuropathy, unspecified; N31.9 Neuromuscular dysfunction of bladder, unspecified; R56.9 Unspecified convulsions; Z16.12 Extended spectrum beta lactamase (ESBL) resistance; R53.81 Other malaise; F06.31 Mood disorder due to known physiological condition with depressive features; K59.00 Constipation, unspecified; R91.1 Solitary pulmonary nodule; B96.4 Proteus (mirabilis) (morganii) as the cause of diseases classified elsewhere; Z74.01 Bed confinement status; Z87.442 Personal history of urinary calculi; Z92.21 Personal history of antineoplastic chemotherapy; Z79.899 Other long term (current) drug therapy
CPT/HCPCS: 36415; 36569; 70450; 72157; 72158; 73560; 74018; 74176; 74181; 76937; 77001; 80048; 80053; 80076; 81001; 83690; 83735; 84100; 84484; 85025; 85027; 85610; 85651; 86140; 86710; 87040; 87077; 87086; 87186; 87804; 93005; 93306; 93970; 97110; 97112; 97116; 97140; 97163; 97166; 97530; 97535; 97542; A9577; C1725; C1893; J0692; J0780; J1170; J1650; J1885; J2185; J2270; J2405; J3490; J7030; J7040; Q0162; A4315; A5200